=== PATIENT | female | born 1950 | race African-American/Black ===

== ENCOUNTER 2019-07-20 06:30 | Inpatient (IN) | payer MEDICARE, MEDICAID ==
[2019-07-20 07:19] VITALS: BP 99/60
[2019-07-20] MEDS ORDERED: Magnesium Hydroxide (MOM) 30 mL UDC PO PRN (07:41)
[2019-07-20] MEDS ORDERED: Maalox 30 mL Cup PO PRN (07:41)
[2019-07-20] MEDS: Multivitamin Tab PO SCH (08:57)
--- NOTE | 2019-07-20 20:38 | Consultation ---
DATE OF CONSULTATION: 07/20/2019 SUBJECTIVE: The patient was seen and evaluated. The patient's chart reviewed, Covering for Dr. Abreu. CHIEF COMPLAINT: "I am suicidal." REASON FOR HOSPITALIZATION: The patient stated that she was suicidal at her skilled nursing and placed on a 5150. HISTORY OF PRESENT ILLNESS: A 68-year-old female brought in here from [facility] on a 5150. She was brought in from a skilled nursing after she had called 911 as she was unresponsive, as she wanted to kill herself playing "." Today, on [id number] evaluation, the patient admits to depression, feeling suicidal, disengaged in the interview at times, needing a lot of redirection for simple conversation. PAST MEDICAL HISTORY: Limited, but noted to have a history of high blood pressure. PAST PSYCHIATRIC HISTORY: History of unspecified psych disorder. SIGNIFICANT FAMILY PSYCHIATRIC HISTORY: Limited due to the patient's uncooperative state. SOCIAL HISTORY: Currently lives in a skilled nursing. Denies any illicit drug use, alcohol. ALLERGIES TO MEDICATIONS: PENICILLIN. LEGAL HISTORY: Denied. ABUSE HISTORY: Denied. CURRENT HOME MEDICATIONS: Lisinopril, metformin, Theragen, Zyprexa 10 mg p.o. every day. PAST MEDICAL HISTORY: Includes also history of diabetes. MENTAL STATUS EXAMINATION: Disorganized, depressed, endorsing suicidal ideation, no active plan. Poor insight, poor judgment, poor impulse control, at times selectively mute, disorganized. ASSESSMENT AND PLAN: The patient is a 68-year-old female with a history of disorganized schizophrenia, currently on Zyprexa, unclear if the patient had been compliant with medication. We will continue with the current medication regimen. We will obtain more collateral baseline information: PRIMARY DIAGNOSIS: Unspecified psychosis, rule out schizoaffective disorder, rule out dementia with behavior disturbances. MEDICAL DIAGNOSES: 1. Hypertension. 2. Diabetes. WEAKNESSES: Poor coping skills. STRENGTHS: Good support system. LEGAL HISTORY: Unable to elicit the patient refusal. ESTIMATED LENGTH OF STAY: Between 5-10 days. ____ unable to elicit the patient refusal. PLAN: 1. Admit the patient. 2. Continue with the current medication. 3. Obtain more collateral baseline information. 4. Start the patient with inpatient individual and group therapy and developing coping skills. JOB# [id number]
[2019-07-20] MEDS: Benztropine 1 MG TAB PO SCH (21:06)
[2019-07-21 06:47] LABS: CHOLESTEROL 79 mg/dL (<200); HDL -HIGH DENSITY LIPOPROTEIN 39 mg/dL (23-92); TRIGLYCERIDES 85 mg/dL (<150)
[2019-07-21] MEDS: Multivitamin Tab PO SCH (08:30)
[2019-07-21] MEDS: Benztropine 1 MG TAB PO SCH (21:24)
--- NOTE | 2019-07-22 00:23 | History & Physical ---
ADMIT DATE: 07/20/2019 REASON FOR ADMISSION: Psychiatric disorder. HISTORY OF PRESENT ILLNESS: This is a 68-year-old female admitted to General Geropsych Unit for underlying psychiatric illnesses by ____ requested a medical H and P on this patient. The patient denies any medical concerns. PAST MEDICAL HISTORY: Diabetes, hypertension. PAST SURGICAL HISTORY: Noncontributory. FAMILY HISTORY: None. SOCIAL HISTORY: Denies any alcohol or tobacco. CURRENT MEDICATIONS: Reviewed. ALLERGIES: PENICILLIN. REVIEW OF SYSTEMS: Denies any fever, no chills, no nausea, no vomiting, no abdominal pain, no cough, no chest pain, ____. PHYSICAL EXAMINATION: VITAL SIGNS: Temperature 97, pulse 104, respirations 20, blood pressure 120/69, 100% on room air. HEENT: Unremarkable. HEART: S1, S2 normal. LUNGS: Clear to auscultation. ABDOMEN: Soft. NEUROLOGIC: Moves all extremities. The patient is awake, confused. ASSESSMENT: 1. Diabetes. 2. Hypertension. 3. Obesity. 4. ____. PLAN: Psych management per psychiatrist. Continue lisinopril, continue metformin. Monitor blood sugars and vitals. The patient is medically stable. Thank you ____ for allowing me to participate in the care of this patient. JOB# [id number]
--- NOTE | 2019-07-22 05:00 | Progress Notes ---
DATE: SUBJECTIVE: The patient was seen and evaluated. The patient's chart reviewed. Covering for Dr. Abreu. Overnight nursing staff reported the patient slept well, although very irritable upon approach and wanders throughout the unit. Today on [id number] evaluation, the patient continues to redirect "Liar, you're a liar," and when attempting to validate her emotions, she just becomes more irritable and anxious in regards to those terms. MENTAL STATUS EXAMINATION: Disorganized, suspicious, isolative, withdrawn. ASSESSMENT AND PLAN: History of schizophrenia, comorbid depression. We will continue with olanzapine to target the patient's suspicious and disorganized state. The patient in the near future may benefit from an antidepressant. We will continue to slowly titrate the patient's antipsychotics. Dictation ends here. JOB# [id number]
[2019-07-22] MEDS: Multivitamin Tab PO SCH (08:32)
[2019-07-22 09:11] LABS: A1C 6.7 % (4.8-5.6)
[2019-07-22] MEDS: Benztropine 1 MG TAB PO SCH (20:55)
--- NOTE | 2019-07-22 23:36 | Progress Notes ---
DATE: 07/22/2019 Case was discussed with staff of the patient, reviewed records. Covering for Dr. Abreu. This is a 68-year-old female who was admitted on 07/20/2019. She was suicidal at the custodial, placed on a hold, she came from [facility] on 5150. She called 911. She was unresponsive. She wanted to kill herself playing . Today, when she was seen by Dr. Allan, she admits to depression, feeling suicidal, disengaged in the interview at times, needing a lot of redirection. The patient unabble to give much information. The patient continues to be irritable. She slept well. She was wandering through the unit. Continues to need redirection calling the staff liars. She gets easily agitated, diagnosed with schizophrenia. Continues to have poor insight, unable to make safe plan for self-care. no side effects, no sedation, no nausea, no extrapyramidal symptoms. We gave her more time for the medication to work because of her age. We will continue to work with the patient in group therapy, milieu therapy, and adjust medication as needed. JOB# [id number] HALLIE
[2019-07-23] MEDS: Multivitamin Tab PO SCH (08:49)
--- NOTE | 2019-07-23 14:30 | Progress Notes ---
DATE: 07/23/2019 Case was discussed with staff of the patient, reviewed records. Covering for Dr. Abreu. The patient was having suicidal thoughts. She was playing in bed. She has been feeling depressed, suicidal, disengaged, unable to give much information. She continues to be irritable, wondering through the unit, needing redirection, calling the staff liars, easily agitated with a history of schizophrenia. Continues to have poor insight, unpredictable, impulsive, needing redirection. We will continue to work with the patient in group therapy, milieu therapy, and adjust the medication as needed. JOB# [id number]
[2019-07-23] MEDS: Benztropine 1 MG TAB PO SCH (21:04)
[2019-07-24] MEDS: Multivitamin Tab PO SCH (10:51)
--- NOTE | 2019-07-24 19:50 | Progress Notes ---
DATE: 07/24/2019 PSYCHIATRIC PROGRESS NOTE. SUBJECTIVE: Chart reviewed and the patient interviewed. Also discussed the patient's condition with the staff and reviewed records and labs. The patient is still guarded and withdrawn, although she started to get out of her room a little bit more. Also, slight improvement in her ADLs and the patient showered. Still she has minimum interaction and she is hardly talking, but at least she is getting out of her room and she is still trying to get to talk to others, although she does not talk much. The patient also still seems to be in a depressed mood. Otherwise, the patient is compliant with taking her medications with no side effects of Zyprexa 10 mg every day. ASSESSMENT: The patient is still anxious and is in a depressed mood. TREATMENT PLAN: Continue to monitor her behavior and her condition closely. Also, working on her depression and her ineffective coping and her isolative behavior. [facility]# [id number]
[2019-07-24] MEDS: Benztropine 1 MG TAB PO SCH (21:17)
[2019-07-25] MEDS: Multivitamin Tab PO SCH (08:32)
[2019-07-25] MEDS: Benztropine 1 MG TAB PO SCH (20:56)
--- NOTE | 2019-07-25 22:27 | Progress Notes ---
DATE: 07/25/2019 SUBJECTIVE: A 68-year-old female brought in from [facility], brought in from a longterm. Noted to be playing bingo, but it is really difficult to understand her. The patient apparently wanted to kill herself. She was depressed. The patient is a limited historian, difficult to really follow her thought processes, possible history of schizoaffective dementia per documentation. Dr. Abreu and Eliezer seeing the patient over the past few days, noting that she was disengaged, depressed, irritable, wandering in the unit, impulsive, unpredictable. Medications were noted including Zyprexa, Cogentin, will continue to monitor ongoing safety concerns at this time. PLAN: We will adjust and titrate medications. JOB# [id number]
[2019-07-26] MEDS: Multivitamin Tab PO SCH (09:49)
[2019-07-26] MEDS: Benztropine 1 MG TAB PO SCH (22:00)
--- NOTE | 2019-07-26 22:05 | General Progress Note ---
Subjective - Review of Systems Service Date: 07/26/19 Subjective: Patient doing fine no reported concern Objective - Results Recent Labs: Laboratory Last Values POC Glucose 96 MG/DL (70 - 105) 07/22/19 11:35 Triglycerides 85 mg/dL (<150) 07/21/19 05:50 Cholesterol 79 mg/dL (<200) 07/21/19 05:50 LDL Cholesterol Direct 21 mg/dL (75-193) L 07/21/19 05:50 HDL Cholesterol 39 mg/dL (23-92) 07/21/19 05:50 - Physical Exam Vitals and I&O: Vital Signs Temp 99.1 F 07/26/19 20:00 Pulse 99 07/26/19 20:00 Resp 18 07/26/19 20:00 BP 81/46 07/26/19 20:00 Pulse Ox 93 07/26/19 20:00 Intake & Output 07/26/19 07/26/19 07/27/19 06:59 18:59 06:59 Intake Total 120 900 Balance 120 900 Intake: Oral 120 900 Other: # Voids 3 3 # Bowel Movements 1 Stool Characteristics Formed Brown Active Medications: Current Medications Acetaminophen (Tylenol) 650 mg PO Q4HR PRN PRN Reason: Mild Pain / Temp above 100 Stop: 09/18/19 07:40 Al Hydrox/Mg Hydrox/Simethicone (Maalox) 30 ml PO Q4HR PRN PRN Reason: GI DISTRESS Stop: 09/18/19 07:40 Last Admin: 07/24/19 11:34 Dose: 30 ml Benztropine Mesylate (Cogentin) 1 mg PO HS CLAUDIA Stop: 09/18/19 20:59 Last Admin: 07/25/19 20:56 Dose: 1 mg Lisinopril (Zestril) 20 mg PO DAILY CLAUDIA Stop: 09/18/19 08:59 Last Admin: 07/26/19 09:50 Dose: 20 mg Lorazepam (Ativan) 0.5 mg PO Q4HR PRN; Protocol PRN Reason: Agitation Stop: 08/19/19 07:40 Last Admin: 07/24/19 10:51 Dose: 0.5 mg Magnesium Hydroxide (Milk Of Magnesia) 30 ml PO HS PRN PRN Reason: Constipation Metformin HCl (Glucophage) 850 mg PO BID CLAUDIA Stop: 09/18/19 08:59 Last Admin: 07/26/19 17:05 Dose: 850 mg Multivitamins/Vitamin C (Theragran) 1 tab PO DAILY CLAUDIA Stop: 09/18/19 08:59 Last Admin: 07/26/19 09:49 Dose: 1 tab Olanzapine (Zyprexa) 10 mg PO DAILY CLAUDIA; Protocol Stop: 09/18/19 08:59 Last Admin: 07/26/19 09:50 Dose: 10 mg Zolpidem Tartrate (Ambien) 5 mg PO HSMR1 PRN PRN Reason: Insomnia Stop: 09/18/19 07:40 Last Admin: 07/25/19 20:56 Dose: 5 mg Cardiovascular: Regular rate Lungs: Clear to auscultation Assessment/Plan - Assessment Assessment: DM II HTN Mental health disorder Obesity - Plan Plan: Continue current meds Monitor vitals Monitor blood sugar Plan of care dw nursing staff Psych follow up Nutritional Asmnt/Malnutr-PDOC - Dietary Evaluation Malnutrition Findings (Please click <Entered> for more info): Nutritional Asmnt/Malnutrition Start: 07/23/19 12: 39 Text: Status: Complete Freq: Protocol: Document 07/23/19 12:39 INDIO (Rec: 07/23/19 12:42 INDIO [email or web address]) Nutritional Asmnt/Malnutrition Patient General Information Nutritional Screening Moderate Risk Diagnosis Psychosis Pertinent Medical Hx/Surgical Hx HTN, DM, Psychiatric Disorder Subjective Information Pt is a 68-year-old female admitted on 07/20 c/o . Per RNEnedina, Pt eats very well, no issues. Pt typically uses dentures but did not arrive with any, RN states Pt eats with no issues. Pt is currently eating an estimated 60% x3 days per Meal/Nutrition Activity Record. HT: 53 WT: 210 LB (95.45 kg) ABW: 139 LB (63.07 kg) IBW: 115 LB (52.27 kg), IBW%: 183 BMI: 37.20 (Obese, Class II) GI: WNL, soft, large, round BM: Not Noted I/O: 1190/Not Noted Skin: WNL, intact Arnaldo: 22 Diet Order: CCHO 60gm Estimated Energy Needs: (Obese , ABW) 7204-7043 kcals (20-25 kcals/ kg) 63-76g Pro (1.0-1.2 g/kg) 8095-6602 ml (25-30 ml/kg) Pt is eating 60% of meals Per Meal/Nutrition Activity Record . Dietary is currently providing an estimated 1940 kcals and 115 gm Pro, per Pt PO intake this is providing an estimated 1164 kcals and 69gm Pro to meet 92% kcal and 100% Pro needs- adequate. Current Diet Order/ [facility] Pertinent Medications Maalox (PRN), MOM (PRN), Glucophage, Theragran, Pertinent Labs No Pertinent Labs Nutritional Hx/Data Height 1.6 m Height (Calculated Centimeters) 160.0 Current Weight (lbs) 95.254 kg Weight (Calculated Kilograms) 95.3 Weight (Calculated Grams) 45620.4 [place] Body Weight 115 LB (52.27 kg) % [place] Body Weight 183 Body Mass Index (BMI) 37.2 Weight Status Obese GI Symptoms GI Symptoms None Last BM Not Noted Skin Integrity/Comment: Skin: WNL, intact Arnaldo: 22 Current %PO Fair (50-74%) Estimated Nutritional Goals BEE in Kcals: Adj wt of IBW Calories/Kcals/Kg 20-25 Kcals Calculated 0795-8670 Protein: Adj wt of IBW Protein g/k.0-1.2 Protein Calculated 63-76 Fluid: ml 1872-3504 ml (25-30 ml/kg) Nutritional Problem No current Nutrition Prob Problem No nutrition diagnosis at this time. Etiology n/a Signs/Symptoms: n/a Malnutrition Related to Morbid Obesity Malnutrition related to morbid obesity No Intervention/Recommendation Comments Continue with [facility] 60gm diet as ordered. Expected Outcomes/Goals Expected Outcomes/Goals 1. PO intake to continue to meet 75% of nutritional needs. 2. Monitor PO intake, wt, nutrition related labs, and skin integrity. 3. F/U as low risk in 7 days, 07/30
--- NOTE | 2019-07-26 23:56 | Progress Notes ---
DATE: 07/26/2019 SUBJECTIVE: A 68-year-old female brought in from [facility] [place], coming in from a nursing home. Currently, the patient is sleeping, arousable, not the best historian, not really able to, for example, tell me why she is here. The patient was apparently unresponsive, told the 911 people she was playing . Apparently, she was suicidal and that she wanted to kill somebody else. The patient is a poor historian, highly impulsive, unpredictable, depressed, withdrawn, selectively mute, ongoing paranoia, is fearful with staff. ASSESSMENT: The patient is withdrawn, ongoing symptoms, concerns for poor impulse control. Medications were noted. PLAN: We will continue dosing of Zyprexa for now. [facility]# [id number]
[2019-07-27] MEDS: Multivitamin Tab PO SCH (08:18)
--- NOTE | 2019-07-27 19:10 | Progress Notes ---
DATE: 07/27/2019 SUBJECTIVE: The patient in the hospital. She slept fairly well. No noted agitation, disengaged on exam, highly withdrawn, not really saying anything, AO to name only, preoccupied, mumbling to self. Concerns for ongoing psychotic symptoms. Poor impulse control, not able to take care of her basic needs. Still preoccupied, unpredictable, seems to be developmentally delayed, concerns about poor impulse control. The patient is apparently living at home with her brother. We will continue to monitor. Medications were noted. We will continue to make appropriate medication adjustments. [facility]# [id number]
[2019-07-27] MEDS: Benztropine 1 MG TAB PO SCH (21:27)
[2019-07-28] MEDS: Multivitamin Tab PO SCH (08:28)
--- NOTE | 2019-07-28 20:15 | Progress Notes ---
DATE: 07/28/2019 SUBJECTIVE: The patient in the hospital, very poorly oriented, wandering, pacing, mostly keeps to herself, withdrawn, depressed, appearing easily irritated per staff. The patient is not really saying much to me this morning, actually walks away from me when I approached her, mumbling, slurring of her words. She did sleep pretty well last night. She seems generally calmer versus when she first got to the hospital. Medications were noted including doses of Zyprexa. Vitals were noted. We will continue to monitor. JOB# [id number]
[2019-07-28] MEDS: Benztropine 1 MG TAB PO SCH (21:13)
[2019-07-29] MEDS: Multivitamin Tab PO SCH (09:51)
--- NOTE | 2019-07-29 16:25 | Progress Notes ---
DATE: 07/29/2019 SUBJECTIVE: The patient in the hospital, mostly preoccupied, depressed, developmental disability. She is calmer now but she is pretty impulsive, unpredictable, difficult to predict her behaviors. I go to talk to her. She just avoids me. Does not say too much, selectively mute, ongoing concerns about her ability to stay safe although the staff noting that she has not had any recent behavioral disturbances, seems to be getting along fairly well with others as of late. Per Under Cutter, the patient is living with her brother and son and she is a [facility] client, seems to be approaching her baseline, currently on dosing of Zyprexa. PLAN: We will continue to monitor. Monitor for any behavioral disturbances. [facility]# [id number]
[2019-07-29] MEDS: Benztropine 1 MG TAB PO SCH (21:17)
--- NOTE | 2019-07-29 21:24 | General Progress Note ---
Subjective - Review of Systems Service Date: 07/29/19 Subjective: Patient doing fine no reported concern Objective - Results Recent Labs: Laboratory Last Values POC Glucose 96 MG/DL (70 - 105) 07/22/19 11:35 Triglycerides 85 mg/dL (<150) 07/21/19 05:50 Cholesterol 79 mg/dL (<200) 07/21/19 05:50 LDL Cholesterol Direct 21 mg/dL (75-193) L 07/21/19 05:50 HDL Cholesterol 39 mg/dL (23-92) 07/21/19 05:50 - Physical Exam Vitals and I&O: Vital Signs Temp 98.3 F 07/29/19 20:23 Pulse 93 07/29/19 20:23 Resp 20 07/29/19 20:23 BP 120/68 07/29/19 20:23 Pulse Ox 97 07/29/19 20:23 Intake & Output 07/29/19 07/29/19 07/30/19 06:59 18:59 06:59 Intake Total 480 900 180 Output Total 1 Balance 479 900 180 Intake: Oral 480 900 180 Output: Urine/Stool Mix 1 Other: # Voids 1 3 2 # Bowel Movements 1 0 Stool Characteristics Formed Brown Active Medications: Current Medications Acetaminophen (Tylenol) 650 mg PO Q4HR PRN PRN Reason: Mild Pain / Temp above 100 Stop: 09/18/19 07:40 Al Hydrox/Mg Hydrox/Simethicone (Maalox) 30 ml PO Q4HR PRN PRN Reason: GI DISTRESS Stop: 09/18/19 07:40 Last Admin: 07/24/19 11:34 Dose: 30 ml Benztropine Mesylate (Cogentin) 1 mg PO HS CLAUDIA Stop: 09/18/19 20:59 Last Admin: 07/29/19 21:17 Dose: 1 mg Lisinopril (Zestril) 20 mg PO DAILY CLAUDIA Stop: 09/18/19 08:59 Last Admin: 07/29/19 09:50 Dose: Not Given Lorazepam (Ativan) 0.5 mg PO Q4HR PRN; Protocol PRN Reason: Agitation Stop: 08/19/19 07:40 Last Admin: 07/27/19 08:19 Dose: 0.5 mg Magnesium Hydroxide (Milk Of Magnesia) 30 ml PO HS PRN PRN Reason: Constipation Metformin HCl (Glucophage) 850 mg PO BID CLAUDIA Stop: 09/18/19 08:59 Last Admin: 07/29/19 17:23 Dose: 850 mg Multivitamins/Vitamin C (Theragran) 1 tab PO DAILY CLAUDIA Stop: 09/18/19 08:59 Last Admin: 07/29/19 09:51 Dose: 1 tab Olanzapine (Zyprexa) 10 mg PO DAILY CLAUDIA; Protocol Stop: 09/18/19 08:59 Last Admin: 07/29/19 09:51 Dose: 10 mg Zolpidem Tartrate (Ambien) 5 mg PO HSMR1 PRN PRN Reason: Insomnia Stop: 09/18/19 07:40 Last Admin: 07/29/19 21:17 Dose: 5 mg Cardiovascular: Regular rate Lungs: Clear to auscultation Assessment/Plan - Assessment Assessment: DM II HTN Mental health disorder Obesity - Plan Plan: Continue current meds Monitor vitals Monitor blood sugar Plan of care dw nursing staff Psych follow up Nutritional Asmnt/Malnutr-PDOC - Dietary Evaluation Malnutrition Findings (Please click <Entered> for more info): Nutritional Asmnt/Malnutrition Start: 07/23/19 12: 39 Text: Status: Complete Freq: Protocol: Document 07/23/19 12:39 INDIO (Rec: 07/23/19 12:42 INDIO [email or web address]) Nutritional Asmnt/Malnutrition Patient General Information Nutritional Screening Moderate Risk Diagnosis Psychosis Pertinent Medical Hx/Surgical Hx HTN, DM, Psychiatric Disorder Subjective Information Pt is a 68-year-old female admitted on 07/20 c/o . Per RNEnedina, Pt eats very well, no issues. Pt typically uses dentures but did not arrive with any, RN states Pt eats with no issues. Pt is currently eating an estimated 60% x3 days per Meal/Nutrition Activity Record. HT: 53 WT: 210 LB (95.45 kg) ABW: 139 LB (63.07 kg) IBW: 115 LB (52.27 kg), IBW%: 183 BMI: 37.20 (Obese, Class II) GI: WNL, soft, large, round BM: Not Noted I/O: 1190/Not Noted Skin: WNL, intact Arnaldo: 22 Diet Order: [facility] 60gm Estimated Energy Needs: (Obese , ABW) 4787-5262 kcals (20-25 kcals/ kg) 63-76g Pro (1.0-1.2 g/kg) 5207-6937 ml (25-30 ml/kg) Pt is eating 60% of meals Per Meal/Nutrition Activity Record . Dietary is currently providing an estimated 1940 kcals and 115 gm Pro, per Pt PO intake this is providing an estimated 1164 kcals and 69gm Pro to meet 92% kcal and 100% Pro needs- adequate. Current Diet Order/ Nutrition Support [facility] 60gm Pertinent Medications Maalox (PRN), MOM (PRN), Glucophage, Theragran, Pertinent Labs No Pertinent Labs Nutritional Hx/Data Height 1.6 m Height (Calculated Centimeters) 160.0 Current Weight (lbs) 95.254 kg Weight (Calculated Kilograms) 95.3 Weight (Calculated Grams) 36394.4 [place] Body Weight 115 LB (52.27 kg) % [place] Body Weight 183 Body Mass Index (BMI) 37.2 Weight Status Obese GI Symptoms GI Symptoms None Last BM Not Noted Skin Integrity/Comment: Skin: WNL, intact Arnaldo: 22 Current %PO Fair (50-74%) Estimated Nutritional Goals BEE in Kcals: Adj wt of IBW Calories/Kcals/Kg 20-25 Kcals Calculated 6772-9162 Protein: Adj wt of IBW Protein g/k.0-1.2 Protein Calculated 63-76 Fluid: ml 1248-2936 ml (25-30 ml/kg) Nutritional Problem No current Nutrition Prob Problem No nutrition diagnosis at this time. Etiology n/a Signs/Symptoms: n/a Malnutrition Related to Morbid Obesity Malnutrition related to morbid obesity No Intervention/Recommendation Comments Continue with [facility] 60gm diet as ordered. Expected Outcomes/Goals Expected Outcomes/Goals 1. PO intake to continue to meet 75% of nutritional needs. 2. Monitor PO intake, wt, nutrition related labs, and skin integrity. 3. F/U as low risk in 7 days, 07/30
[2019-07-30] MEDS: Multivitamin Tab PO SCH (08:46)
[2019-07-30] MEDS: Benztropine 1 MG TAB PO SCH (20:57)
--- NOTE | 2019-07-30 22:16 | Progress Notes ---
DATE: 07/30/2019 SUBJECTIVE: The patient is in the hospital, mostly preoccupied, depressed, concerns. The patient with history of developmental disabilities. She remains pretty impulsive, unpredictable, and difficult to predict her behaviors. The patient seems to be getting along fairly well with others as of late. Generally calmer, some pacing, wandering behaviors. The patient got about 9-1/2 hours of sleep, resting comfortably in bed, preoccupied, oriented to self and place only. Noted to be sad, depressed, still withdrawn appearing, ongoing concerns about impulse control. Still childlike. We will continue to monitor ongoing concerns about poor impulse control. The patient is apparently living with family. PLAN: We will continue to monitor, likely approaching her baseline. [facility]# [id number]
[2019-07-31] MEDS: Multivitamin Tab PO SCH (08:50)
[2019-07-31] MEDS: Benztropine 1 MG TAB PO SCH (20:45)
--- NOTE | 2019-07-31 23:34 | Progress Notes ---
DATE: 07/31/2019 SUBJECTIVE: The patient is in the hospital, preoccupied, still depressed, unpredictable at times, history of developmental disability. The patient seems to be generally calmer, more redirectable, no agitation. She remained somewhat unpredictable as noted, but her behaviors over the past couple of days has been calm, mostly withdrawn, keeps to self, concerns that she may act out upon her impulses as she has done so in the past. Medications were noted. She seems to be tolerant of Zyprexa. No side effects. PLAN: We will continue to monitor. JOB# [id number]
[2019-08-01] MEDS: Multivitamin Tab PO SCH (08:49)
--- NOTE | 2019-08-01 21:11 | Progress Notes ---
DATE: 08/01/2019 SUBJECTIVE: The patient in the hospital, slept for about 7 hours. No behavioral outbursts. The patient is calm, quiet, cooperative, preoccupied with own thoughts, forgetful at times, still somewhat unpredictable. She seems to be calmer. No noted agitation at this time, getting along fairly well with staff and peers, currently on dosing of Zyprexa, seems to be tolerant of dosage. No SI, no HI. No overt psychotic symptoms, seems to be approaching her baseline. Staff noting she is a lot more redirectable. PLAN: We will monitor for further 24 hours, confirm placement. JOB# [id number]
[2019-08-01] MEDS: Benztropine 1 MG TAB PO SCH (21:19)
[2019-08-02] MEDS: Multivitamin Tab PO SCH (08:39)
[2019-08-02] MEDS: Benztropine 1 MG TAB PO SCH (22:00)
--- NOTE | 2019-08-03 01:59 | Progress Notes ---
DATE: 08/02/2019 SUBJECTIVE: The patient is currently in the hospital, seems to be generally calmer, more cooperative, no SI, no HI, no intent, no plan. Staff noting improvement in regards to her mood state. No agitation, unable to make simple needs. No overt psychotic symptoms. Tolerant of medications. PLAN: We will discharge today on inpatient criteria. JOB# [id number]
[2019-08-03] MEDS: Multivitamin Tab PO SCH (08:38)
--- NOTE | 2019-08-03 17:50 | Progress Notes ---
DATE: 08/03/[address] Abreu. Case was discussed with staff of the patient, reviewed records. The patient is a well-known case to me as I have admitted her covering for Dr. Abreu. The patient is more cooperative, calmer. No agitation; however, unable to make simple decisions. Apparently, she is supposed to be discharging; however, I am not sure why she is still here. The staff reported that nobody was able to tell me why. No side effects with the medication, no sedation, no nausea. We will continue outpatient group therapy, milieu therapy, and adjust medication as needed. JOB# [id number]
[2019-08-03] MEDS: Benztropine 1 MG TAB PO SCH (21:09)
[2019-08-04] MEDS: Multivitamin Tab PO SCH (08:53)
--- NOTE | 2019-08-04 13:21 | Discharge Summary ---
DATE OF DISCHARGE: 08/04/2019 IDENTIFYING INFORMATION: The patient is a 68-year-old female. CHIEF COMPLAINT: "I am suicidal." HISTORY OF PRESENT ILLNESS: The patient was placed on a hold on the halfway because of danger to self. She was brought from [facility] on a hold. She was brought from a halfway after she had called 911. She was unresponsive. She wanted to kill herself playing . Today, when she was seeing [id number], she patient admits depression, feeling suicidal, disengaged and needing a lot of redirection. MEDICAL HISTORY: Hypertension, history of unspecified psychotic disorder. ALLERGIES: ALLERGIC TO PENICILLIN. She will continue lisinopril, metformin, and Zyprexa 10 mg daily. SOCIAL HISTORY: The patient lives in a halfway. Denies any abuse. COURSE IN THE HOSPITAL: The patient was continued with Zyprexa. The patient also will continue with the rest of her medications described before. Cogentin was added 1 mg at bedtime. The patient progressively got better. She was no longer acting out. Apparently, her family came and visited her. They do plan to take her. Family Dr. Phan, already put the order for her to be discharged today as she is doing well. She is calmer, more cooperative. No suicidal ideation, no homicidal ideation. No longer meeting criteria for further inpatient treatment. So, the patient will follow up with the psychiatrist, primary care physician and a therapist. The patient will be given 2-week supply of her medication with one refill. FINAL DIAGNOSES: Unspecified schizoaffective disorder, rule out dementia. MEDICAL DIAGNOSES: Hypertension, diabetes. The patient will follow up with psychiatrist and primary care physician and therapist. EXPECTED OUTCOME: Stable if the patient complies with the above. JOB# [id number]
== END 2019-08-04 15:20 | disposition home or self-care (01) | DRG 885 ==
LOC: GERO 06:30
PROVIDERS: ADMIT Psychiatry & Neurology Psychiatry; ATTEND Psychiatry & Neurology Psychiatry
DX: F25.9 Schizoaffective disorder, unspecified (principal); F03.91 Unspecified dementia, unspecified severity, with behavioral disturbance; F29 Unspecified psychosis not due to a substance or known physiological condition; I10 Essential (primary) hypertension; E11.9 Type 2 diabetes mellitus without complications; E66.9 Obesity, unspecified; F41.9 Anxiety disorder, unspecified; Z88.0 Allergy status to penicillin; Z79.84 Long term (current) use of oral hypoglycemic drugs; Z68.37 Body mass index [BMI] 37.0-37.9, adult
CPT/HCPCS: 36415-UA; 80061-TC; 82948-90; 83036-90; 90899; G0410; Z7610

== ENCOUNTER 2019-11-07 14:35 | Inpatient (IN) | payer MEDICARE, MEDICAID ==
[2019-11-07 14:57] VITALS: BP 135/36
[2019-11-07] MEDS ORDERED: Maalox 30 mL Cup PO PRN ×2 (15:32→17:50)
[2019-11-07] MEDS ORDERED: Magnesium Hydroxide (MOM) 30 mL UDC PO PRN (15:32)
[2019-11-07] MEDS ORDERED: GLUCAGON HCl 1 MG KIT IM PRN (19:14)
[2019-11-07] MEDS: INSULIN LISPRO SLIDING SCALE 100 UNITS/ML UNIT SUBQ SCH (20:55)
[2019-11-07] MEDS: Benztropine 1 MG TAB PO SCH (21:04)
[2019-11-08] MEDS: INSULIN LISPRO SLIDING SCALE 100 UNITS/ML UNIT SUBQ SCH ×4 (06:36→20:49)
[2019-11-08] MEDS: Aspirin 81mg Chewable Tab PO SCH (08:12)
[2019-11-08] MEDS: Multivitamin Tab PO SCH (08:12)
[2019-11-08] MEDS ORDERED: Multivitamin Tab PO SCH (09:00)
[2019-11-08] MEDS: Benztropine 1 MG TAB PO SCH (20:48)
[2019-11-09] MEDS: INSULIN LISPRO SLIDING SCALE 100 UNITS/ML UNIT SUBQ SCH ×4 (06:50→21:02)
[2019-11-09] MEDS: Aspirin 81mg Chewable Tab PO SCH (10:43)
[2019-11-09] MEDS: Multivitamin Tab PO SCH (10:45)
[2019-11-09] MEDS: Benztropine 1 MG TAB PO SCH (21:02)
--- NOTE | 2019-11-09 22:33 | Progress Notes ---
DATE: 11/09/2019 SUBJECTIVE: The patient in the hospital, slept about 10 hours. No behavioral outburst, calm and quiet overnight, apparently brought in, diagnosis was schizophrenia. Apparently was agitated, going to neighbors houses, refusing to eat, refusing medications, acting strange, bizarre. The patient refusing to speak with me this morning, sleeping, arousable, but does not want to engage, mostly depressed, withdrawn, selectively mute and isolative, ongoing symptoms, safety concerns, concerns for ability to really stay safe at a lower level of care. Continue dosing of Zyprexa. JOB# [id number]
[2019-11-10] MEDS: INSULIN LISPRO SLIDING SCALE 100 UNITS/ML UNIT SUBQ SCH ×4 (06:36→20:51)
[2019-11-10] MEDS: Multivitamin Tab PO SCH (08:21)
[2019-11-10] MEDS: Aspirin 81mg Chewable Tab PO SCH (08:21)
[2019-11-10] MEDS: Benztropine 1 MG TAB PO SCH (20:51)
[2019-11-11] MEDS: INSULIN LISPRO SLIDING SCALE 100 UNITS/ML UNIT SUBQ SCH ×4 (06:32→20:48)
--- NOTE | 2019-11-11 08:04 | Psychiatric Evaluation ---
DATE OF SERVICE: 11/10/2019 PATIENT'S AGE: 68 SEX: Male. PHYSICIAN: Dr. Abreu. CHIEF COMPLAINT: Agitation and irritability. HISTORY OF PRESENT ILLNESS: The patient is a 68-year-old male with history of schizophrenia. The patient was admitted to the hospital because the patient was wandering into other people's houses for him at home and she was refusing to take her medications or to get any help. She also was easily irritable and agitated. The patient is still confused and is still in irritable mood. The patient also has no explanation for why she was going to other people's houses. She also was restless. PAST PSYCHIATRIC HISTORY: The patient has history of schizophrenia according to the chart. PAST MEDICAL HISTORY: The patient has history of hypertension as well as diabetes mellitus. SOCIAL HISTORY: The patient lives at home. No known alcohol or drug use. ALLERGIES: PENICILLIN. MENTAL STATUS EXAMINATION: The patient appears older than her stated age. Anxious. Confused. Irritable mood. Easily agitated. Thought processes are circumstantial with flight of ideas. The patient denies any hallucinations or delusions. The patient denied suicidal or homicidal ideation. The patient is alert and oriented to the place, person, and situation. Intact immediate, recent and remote memories. Poor insight and poor judgment. ASSESSMENT: PRIMARY DIAGNOSIS: Schizophrenic disorder, unspecified. MEDICAL DIAGNOSES: 1. Diabetes mellitus. 2. Hypertension. TREATMENT PLAN: Continue to monitor her behavior and her condition closely. Also, we will continue Zyprexa and we will adjust the dose. Hopefully, the patient will be compliant with taking her medications and will work on her compliance with medications. Also, will work on behavior and followup. ESTIMATED LENGTH OF STAY: 5-7 days. PATIENT'S STRENGTHS AND WEAKNESSES: The patient's strength is not clear at this time. Weaknesses are her poor judgment, but noncompliant with taking her medications. AFTER DISCHARGE PLAN: Outpatient treatment and followup will continue as an outpatient. CRITERIA FOR DISCHARGE: The patient will not be psychotic or agitated and will be compliant with taking her medications and followup. JOB# [id number]
--- NOTE | 2019-11-11 08:04 | History & Physical ---
ADMIT DATE: 11/08/2019 REASON FOR ADMISSION: Psychiatric disorder. HISTORY OF PRESENT ILLNESS: This is a 68-year-old female with underlying history of diabetes, hypertension, mental disorders who was admitted to Geropsych Unit for psychiatric illness by Dr. Abreu. Dr. Abreu requested medical H and P on this patient. The patient denies any chest pain or trouble breathing. No fever, no chills, no nausea, no abdominal complaints. PAST MEDICAL HISTORY: Diabetes, hypertension. PAST SURGICAL HISTORY: No significant past surgical history. FAMILY HISTORY: No significant family history. SOCIAL HISTORY: Lives in a care home. No reported alcohol, tobacco, or drug use. CURRENT MEDICATIONS: Per medication reconciliation. ALLERGIES: No known allergies. REVIEW OF SYSTEMS: No reported fever, no chills, no cough, no congestion, no dysuria, no hematuria, no headache, no nausea, vomiting, or abdominal pain ____. PHYSICAL EXAMINATION: VITAL SIGNS: Temperature 98.0, pulse 75, respirations 20, blood pressure 119/61. Pain 0/10. HEENT: Unremarkable. HEART: S1, S2 normal. LUNGS: Clear to auscultation. ABDOMEN: Soft, nontender. NEUROLOGIC: ____. AVAILABLE LABORATORY DATA: Reviewed. ASSESSMENT: 1. Hypertension. 2. Diabetes. 3. Insomnia. 4. Mental disorder. PLAN: The patient will continue on a diabetic and blood pressure medication. Blood sugar monitor, Accu-Cheks, sliding scale coverage will be given. Psych management per psychiatrist. The patient ____ Ambien is for insomnia. The patient's condition and plan of care discussed with the nursing staff. The patient is medically stable to participate in activities of Geropsych Unit. Thank you, Dr. Abreu for allowing me to participate in the care of this patient. JOB# [id number]
--- NOTE | 2019-11-11 08:04 | Progress Notes ---
DATE: 11/10/2019 SUBJECTIVE: The patient in the hospital, noted to be generally calm, seems to be more cooperative, taking medications, selective however, unpredictable, uncooperative per staff, rambling, mumbling, talking to self, very impulsive, unpredictable, ongoing safety concerns, noted to be sad, withdrawn, poor orientation and medications were noted. PLAN: We will continue to monitor. Continue dosing of Zyprexa. [facility]# [id number]
[2019-11-11] MEDS: Aspirin 81mg Chewable Tab PO SCH (08:26)
[2019-11-11] MEDS: Multivitamin Tab PO SCH (08:26)
--- NOTE | 2019-11-11 10:49 | Progress Notes ---
DATE: 11/11/2019 SUBJECTIVE: Chart was reviewed and the patient interviewed. Also discussed the patient's condition with the staff and reviewed records and labs. The patient is still confused and forgetful. The patient also is selectively mute and when I tried to interview the patient, she kept staring at me without answering most of my questions. At other time, she was mumbling and talking to herself with difficulty to understand what she is talking about. The patient also seems to be in a depressed mood with sad affect. Otherwise, the patient is compliant with taking her medications with no side effects of medications. ASSESSMENT: The patient is still confused, but less agitated. TREATMENT PLAN: Continue Zyprexa 10 mg at bedtime. Also, continue monitoring her behavior and adjusting psychotropic medications and continue to follow up closely. [facility]# [id number]
[2019-11-11] MEDS: Benztropine 1 MG TAB PO SCH (20:47)
[2019-11-12] MEDS: INSULIN LISPRO SLIDING SCALE 100 UNITS/ML UNIT SUBQ SCH ×4 (06:42→21:42)
[2019-11-12] MEDS: Aspirin 81mg Chewable Tab PO SCH (09:56)
[2019-11-12] MEDS: Multivitamin Tab PO SCH (10:05)
--- NOTE | 2019-11-12 11:24 | Progress Notes ---
DATE: Chart was reviewed and the patient interviewed. Also discussed the patient's condition with the staff and reviewed records and labs. The patient continued to be confused and is still in a depressed mood. The patient also is still forgetful and is still unable to answer questions coherently. Also, during interview, the patient mumbles and have difficulty formulating any coherent conversation. She also is still suspicious, but seems to be less suspicious and less paranoid. Also, personal hygiene seems to be better. During interview, the patient also seems to be slightly depressed. ASSESSMENT: The patient is still confused and paranoid. TREATMENT PLAN: Continue Zyprexa 10 mg at bedtime and Cogentin 1 mg at bedtime. Also, continue to work on behavior modification and follow up closely. [facility]# [id number]
[2019-11-12] MEDS: Benztropine 1 MG TAB PO SCH (21:41)
[2019-11-13] MEDS: INSULIN LISPRO SLIDING SCALE 100 UNITS/ML UNIT SUBQ SCH ×4 (06:36→20:07)
[2019-11-13] MEDS: Multivitamin Tab PO SCH (08:08)
[2019-11-13] MEDS: Aspirin 81mg Chewable Tab PO SCH (08:08)
[2019-11-13] MEDS: Benztropine 1 MG TAB PO SCH (21:09)
[2019-11-14] MEDS: INSULIN LISPRO SLIDING SCALE 100 UNITS/ML UNIT SUBQ SCH ×4 (06:55→20:08)
[2019-11-14] MEDS: Multivitamin Tab PO SCH (08:15)
[2019-11-14] MEDS: Aspirin 81mg Chewable Tab PO SCH (08:15)
[2019-11-14] MEDS: Escitalopram Oxalate 5 mg Tab PO SCH (08:38)
[2019-11-14] MEDS: Benztropine 1 MG TAB PO SCH (20:49)
[2019-11-15] MEDS: INSULIN LISPRO SLIDING SCALE 100 UNITS/ML UNIT SUBQ SCH ×2 (06:40→11:58)
--- NOTE | 2019-11-15 08:06 | Progress Notes ---
DATE: 11/13/2019 DATE: 11/13/2019. Chart reviewed and the patient interviewed. Also discussed the patient's condition with the staff and reviewed records and labs. The patient is still forgetful and confused. The patient also is still suspicious and paranoid. The patient also is still acting bizarre and she mumbles and talking to herself. She also is still suspicious and is still paranoid. She also easily agitated and easily irritable; otherwise, the patient is compliant with taking her medications with no side effects. ASSESSMENT: The patient is still agitated and in irritable mood. TREATMENT PLAN: We will monitor the patient's behavior and condition closely. Also, we will continue Zyprexa and Cogentin and work on her agitation and irritability. JOB# [id number]
--- NOTE | 2019-11-15 08:06 | Progress Notes ---
DATE: 11/14/2019 SUBJECTIVE: Chart was reviewed and the patient interviewed. Also discussed the patient's condition with the staff and reviewed records and labs. The patient is still selectively mute and is still easily irritable and easily agitated. The patient also seems to be preoccupied. On the other hand, the patient seems to be more depressed today. ASSESSMENT: The patient seems to be more depressed. TREATMENT PLAN: We will add Lexapro 5 mg every day and continue to follow up closely. JOB# [id number]
[2019-11-15] MEDS: Escitalopram Oxalate 5 mg Tab PO SCH (08:15)
[2019-11-15] MEDS: Multivitamin Tab PO SCH (08:15)
[2019-11-15] MEDS: Aspirin 81mg Chewable Tab PO SCH (08:15)
[2019-11-15] MEDS: Benztropine 1 MG TAB PO SCH (20:54)
--- NOTE | 2019-11-15 22:12 | Progress Notes ---
DATE: 11/15/2019 SUBJECTIVE: Chart was reviewed and the patient interviewed. Also discussed the patient's condition with the staff and reviewed records and labs. The patient is still restless and is still in irritable mood. The patient also is still confused and still seems to be depressed. The patient also is interacting minimally with peers and with others. The patient also still at times selectively mute and resisting care. Also, during interview, the patient seems to be preoccupied. Otherwise, the patient is compliant with taking her medications with no side effects of medications. ASSESSMENT: The patient is still confused and agitated. TREATMENT PLAN: Continue to monitor behavior and condition closely. Also, continue adjusting psychotropic medications and work on behavioral modification and also on ineffective coping. Lexapro was added yesterday in a dose of 5 mg every day with no side effects. JOB# [id number]
[2019-11-16] MEDS: INSULIN LISPRO SLIDING SCALE 100 UNITS/ML UNIT SUBQ SCH (06:54)
[2019-11-16] MEDS: Aspirin 81mg Chewable Tab PO SCH (08:50)
[2019-11-16] MEDS: Multivitamin Tab PO SCH (08:50)
[2019-11-16] MEDS ORDERED: Escitalopram Oxalate 5 mg Tab PO SCH (09:00)
--- NOTE | 2019-11-16 20:39 | Progress Notes ---
DATE: SUBJECTIVE: Chart reviewed and patient interviewed. Also discussed patient's condition with the staff and reviewed records and labs. The patient seems to be slightly calmer. The patient is still withdrawn and interacting minimally with others. The patient is also selectively mute and she seems to be actively responding to stimuli and talking to herself. She also is still in a depressed mood and she still had sad affect. On the other hand, since patient started on Lexapro 5 mg every day, she seems to be slightly more visible on the unit and getting out of her room slightly more than before. ASSESSMENT: The patient is still psychotic, but depressed. TREATMENT PLAN: Continue to monitor her behavior and her condition closely. Also, we will increase Lexapro to 10 mg every day and we will continue Zyprexa 10 mg at bedtime and continue to follow up. JOB# [id number]
[2019-11-16] MEDS: Benztropine 1 MG TAB PO SCH (21:14)
[2019-11-17] MEDS: INSULIN LISPRO SLIDING SCALE 100 UNITS/ML UNIT SUBQ SCH (06:41)
[2019-11-17] MEDS: Aspirin 81mg Chewable Tab PO SCH (08:55)
[2019-11-17] MEDS: Multivitamin Tab PO SCH (08:55)
[2019-11-17] MEDS: Benztropine 1 MG TAB PO SCH (21:11)
[2019-11-18] MEDS: INSULIN LISPRO SLIDING SCALE 100 UNITS/ML UNIT SUBQ SCH (06:56)
[2019-11-18] MEDS: Multivitamin Tab PO SCH (08:18)
[2019-11-18] MEDS: Aspirin 81mg Chewable Tab PO SCH (08:18)
[2019-11-18] MEDS: Benztropine 1 MG TAB PO SCH (20:48)
[2019-11-19] MEDS: INSULIN LISPRO SLIDING SCALE 100 UNITS/ML UNIT SUBQ SCH (06:48)
[2019-11-19] MEDS: Aspirin 81mg Chewable Tab PO SCH (09:02)
[2019-11-19] MEDS: Multivitamin Tab PO SCH (09:03)
== END 2019-11-19 14:50 | DRG 885 ==
LOC: GERO 14:35
PROVIDERS: ADMIT Psychiatry & Neurology Psychiatry; ATTEND Psychiatry & Neurology Psychiatry
DX: F25.9 Schizoaffective disorder, unspecified (principal); I10 Essential (primary) hypertension; E11.9 Type 2 diabetes mellitus without complications; G47.00 Insomnia, unspecified
CPT/HCPCS: 82948-90; 83036-90; G0410; Z7610

== ENCOUNTER 2020-03-09 08:21 | Inpatient (IN) | payer MEDICARE, MEDICAID ==
[2020-03-09] MEDS ORDERED: Magnesium Hydroxide (MOM) 30 mL UDC PO PRN (11:14)
[2020-03-09] MEDS ORDERED: Acetaminophen 500 MG TAB PO PRN (11:14)
[2020-03-09] MEDS ORDERED: Maalox 30 mL Cup PO PRN (11:14)
[2020-03-09 12:24] VITALS: BP 130/73
--- NOTE | 2020-03-09 13:16 | Consultation ---
DATE OF CONSULTATION: 03/09/2020 HISTORY OF PRESENT ILLNESS: We have an elderly patient with diabetes, hypertension, renal failure and bipolar disorder, who is being transferred here to geropsychiatric for acute agitation. The patient is flailing her arms and saying words that nobody can comprehend. According to [facility] doctor, it appears that the patient was having a manic episode with repetitive arm and hand motion. PAST MEDICAL HISTORY: 1. Bipolar 2. Schizophrenia. 3. Diabetes. 4. Hypertension. 5. Renal failure. PAST SURGICAL HISTORY: Unobtainable. MEDICATIONS: Reviewed. ALLERGIES: None. SOCIAL HISTORY: Unobtainable. REVIEW OF SYSTEMS: Difficult to obtain. PHYSICAL EXAMINATION: VITAL SIGNS: Temperature is 98.0, pulse 70, respirations 18, blood pressure 130/73. HEENT: Normocephalic, atraumatic head exam. NECK: Supple. CARDIOVASCULAR: Regular rate and rhythm. LUNGS: Clear. ABDOMEN: Soft, nontender. EXTREMITIES: No edema, cyanosis or clubbing. ASSESSMENT AND PLAN: 1. Renal failure. 2. Diabetes. 3. Hypertension. 4. Bipolar. 5. Schizophrenia. The patient will have renal function labs performed tomorrow a.m.. The patient will need to have close monitoring of his kidney function. The patient will need to get Accu-Cheks and blood sugar scan done every 6 hours. The patient will need to get a lipid profile. I have reviewed the entire medical records and spoken to family member. Family member says that patient was at home prior to visiting [facility] and their PCP is Dr. Bravo JOB# [id number] MTDD
--- NOTE | 2020-03-09 19:17 | Psychiatric Evaluation ---
DATE OF SERVICE: PSYCHIATRIC INITIAL EVALUATION AND MENTAL STATUS EXAM AGE: 69. SEX: Female. PHYSICIAN: Dr. Abreu. CHIEF COMPLAINT: 5150 hold for grave disability. HISTORY OF PRESENT ILLNESS: The patient was admitted to the hospital on a 5150 hold for grave disability. The patient was presented in [facility] Emergency Room for psychiatric evaluation. The family who brought the patient to the Emergency Room said that the patient was making nonsense and talking to nonvisible people. The patient also was not able to comprehend what the family was trying to tell her. She also was not able to make any sense. She also was having episodes of what seems to be a manic behavior like waving her arms strongly in the air. She also was confused and the patient while in the Emergency Room was not able to state her name and who she lives with. Also, at times, was very tearful and she was rocking back and forth in bed. The patient during my talk to her was obviously preoccupied and confused and she was not able to answer any of my questions coherently and kept covering her face with a blanket and refused to take off the blanket to talk to me. PAST PSYCHIATRIC HISTORY: The patient seems to have history of bipolar disorder versus schizoaffective disorder. The patient has been taking Zyprexa. PAST MEDICAL HISTORY: The patient has a history of hypertension and also non-insulin dependent diabetes mellitus. Otherwise, no other major medical issues. SOCIAL HISTORY: The patient lives with her family. No known alcohol or drug use. ALLERGIES: PENICILLIN. MENTAL STATUS EXAMINATION: The patient appears older than her stated age. Anxious. Sad affect. Irritable mood. Selectively mute and did not want to answer any of my questions. The patient denied any hallucinations or delusions. She denies any thoughts of suicide or homicide. The patient is alert, but unable to assess her orientation or memory at this time and seems to be actively responding to stimuli and confused. Unable to assess her memory or orientation or intelligence at this time because the patient is not answering questions. Poor insight and poor judgment. ASSESSMENT: PRIMARY DIAGNOSIS: Schizoaffective disorder, manic episode, severe, with psychotic features. MEDICAL DIAGNOSES: 1. Hypertension. 2. Diabetes mellitus. TREATMENT PLAN: We will monitor the patient's behavior and condition closely. We will start individual as well as milieu psychotherapy. We will monitor psychotropic medications. ESTIMATED LENGTH OF STAY: 5-7 days. DISCHARGE PLAN: The patient might need placement and outpatient treatment and followup will continue with Dr. Abreu. JOB# [id number]
[2020-03-09] MEDS ORDERED: Haloperidol Lactate 5 mg/mL 1mL Vial IM ONE (21:10)
--- NOTE | 2020-03-10 07:07 | Progress Notes ---
DATE: 03/10/2020 SUBJECTIVE: Chart reviewed and the patient interviewed. Also discussed the patient's condition with the staff and reviewed records and labs. The patient is selectively mute and she is still severely agitated and had episodes of anger. Yesterday, the patient was throwing stuff on the floor and swinging her arms and the patient was given Haldol, Ativan and Benadryl emergency injection to calm her down. The patient currently is calm, but she still has episodes of swinging her arms in air in a way as if she is trying to hit somebody even if nobody next to her. Also, she is still hyperactive and seems to be having some manic episodes. Otherwise, the patient is compliant with taking medications. The patient's gait was steady and vital signs are stable and no new labs available for review. MENTAL STATUS EXAMINATION: Disheveled. Covering her face with towel. Currently, the patient seems to be sedated from the injection of last night. Did not answer questions today, but at the same time she is selectively mute and paranoid. ASSESSMENT: The patient is still psychotic and agitated and can be dangerous to others. TREATMENT PLAN: Continue current medications, which is Lexapro 10 mg in the morning and Cogentin 1 mg at bedtime, but we will increase Zyprexa to 5 mg in the morning and 10 mg at bedtime. Also, continue to work on behavioral modification. Also, try to get more information from the patient regarding her current situation and living stresses. ESTIMATED LENGTH OF STAY: 4-6 days. REASON FOR CONTINUED HOSPITAL STAY: The patient is agitated and needs close monitoring. JOB# [id number]
[2020-03-10] MEDS: INSULIN LISPRO SLIDING SCALE 100 UNITS/ML UNIT SUBQ SCH (07:09)
[2020-03-10] MEDS: Multivitamin Tab PO SCH (08:24)
--- NOTE | 2020-03-10 20:28 | Progress Notes ---
DATE: 03/10/2020 SUBJECTIVE: The patient is still flailing her arms around. No falls. No gait instability. OBJECTIVE: GENERAL: The patient is lying in bed most of the time. VITAL SIGNS: Temperature 98.0, pulse 86, respirations 20, blood pressure is 130/60. HEENT: Normocephalic, atraumatic head exam. NECK: Supple. CARDIOVASCULAR: Regular rate and rhythm. LUNGS: Clear. ABDOMEN: Soft, nontender. EXTREMITIES: No edema, cyanosis or clubbing. ASSESSMENT AND PLAN: 1. Diabetes, hypertension, acute renal failure. 2. Bipolar. 3. Schizophrenia. 4. The patient's labs are being continued to be monitored. The patient's blood sugar is 71. The patient's vitals are optimized. JOB# [id number]
[2020-03-10] MEDS: Benztropine 1 MG TAB PO SCH (20:47)
--- NOTE | 2020-03-11 06:50 | Progress Notes ---
DATE: 03/11/2020 SUBJECTIVE: Chart was reviewed and the patient interviewed. Also discussed the patient's condition with the staff and reviewed records and labs. The patient is extremely agitated and is still in angry and in irritable mood. The patient this morning sitting on gurney chair and is bounding on the chair and also is trying to grab me when I was trying to talk to her. She also is pointing out to imaginary objects and waving her hands in angry and aggressive way. The patient also is still having severe mood swings and at times, the patient seems to be calm and others the patient is extremely agitated and in irritable mood. Otherwise, the patient is compliant with taking her medications, but it seemed that it has not been helping much with her agitation and her aggressive behavior seems to be increased today. The patient is on wheelchair and agitated and vital signs are stable and no new labs available for review. MENTAL STATUS EXAMINATION: Anxious. Irritable mood. Disheveled. Not able to follow any directions. TREATMENT PLAN: We will continue monitoring her behavior and her condition closely. Also, we will increase Zyprexa to 5 mg twice a day and 10 mg at bedtime. Also, we will start the patient on Klonopin 1 mg twice a day. Hopefully, that will help her to be calmer. At the same time, we will continue to work on her irritable mood and agitation. ESTIMATED LENGTH OF STAY: 3-5 days. REASON TO CONTINUE HOSPITAL STAY: The patient is still agitated and also is still in irritable mood. ADDENDUM: We will also decrease Lexapro to 5 mg every day since maybe Lexapro also might cause some of her agitation and manic behavior. JOB# [id number]
[2020-03-11] MEDS: INSULIN LISPRO SLIDING SCALE 100 UNITS/ML UNIT SUBQ SCH (07:03)
[2020-03-11] MEDS: Multivitamin Tab PO SCH (09:45)
[2020-03-11] MEDS: Escitalopram Oxalate 5 mg Tab PO SCH (09:46)
--- NOTE | 2020-03-11 17:46 | Progress Notes ---
DATE: 03/11/2020 SUBJECTIVE: The patient is still flailing her arms. OBJECTIVE: VITAL SIGNS: Temperature 97.6, pulse 103, respirations 20, blood pressure 127/65, satting 98% on room air. HEENT: Normocephalic, atraumatic head exam. NECK: Supple. CARDIOVASCULAR: Regular rate and rhythm. LUNGS: Clear. ABDOMEN: Soft, nontender. EXTREMITIES: No edema, cyanosis or clubbing. ASSESSMENT AND PLAN: 1. Diabetes. 2. Hypertension. 3. Recent renal failure. 4. Bipolar. 5. Schizophrenia. We will have to wait for repeat kidney function labs to see how she is doing. Blood pressure seems to be appropriately monitored and managed. JOB# [id number]
[2020-03-11] MEDS: Benztropine 1 MG TAB PO SCH (21:45)
[2020-03-12] MEDS: INSULIN LISPRO SLIDING SCALE 100 UNITS/ML UNIT SUBQ SCH (06:39)
[2020-03-12] MEDS: Multivitamin Tab PO SCH (09:04)
[2020-03-12] MEDS: Escitalopram Oxalate 5 mg Tab PO SCH (09:04)
--- NOTE | 2020-03-12 14:57 | Progress Notes ---
DATE: 03/12/2020 SUBJECTIVE: The patient is still feeling her arms, although less so. No chest pain, shortness of breath, no nausea, vomiting, abdominal pain. OBJECTIVE: VITAL SIGNS: Temperature is 97.7, pulse 75, respirations 20, blood pressure 130/71. HEENT: Normocephalic, atraumatic head exam. NECK: Supple. CARDIOVASCULAR: Regular rate and rhythm. LUNGS: Clear. ABDOMEN: Soft, nontender. EXTREMITIES: No edema, cyanosis or clubbing. ASSESSMENT AND PLAN: 1. Diabetes. 2. Hypertension. 3. History of renal failure. 4. Bipolar. 5. Schizophrenia. 6. The patient's blood sugar is appropriate and normal. The patient will continue with current medications for BP and diabetes. Discussed care plan with nursing staff. JOB# [id number]
--- NOTE | 2020-03-12 15:30 | Progress Notes ---
DATE: 03/12/2020 SUBJECTIVE: Chart was reviewed and the patient interviewed. Also discussed the patient's condition with the staff and reviewed records and labs. The patient continued to be in irritable mood and she is still easily agitated. The patient also is still grabbing stuff and throwing on the floor. She also swinging her arms and hands, trying to hit somebody, although nobody next to her. She also has unpredictable behavior and she still has mood swings and sometimes calm and sometimes not. The patient also is banging on the ____ table where she is sitting. She also not able to follow staff directions. Vital signs are stable and no new labs available for review. MENTAL STATUS EXAMINATION: Disheveled. Irritable moods. Disorganized thoughts and incoherent and unable to answer any of the questions coherently. ASSESSMENT: The patient is still psychotic and agitated. TREATMENT PLAN: Continue monitoring her behavior and her condition closely. Also, continue Zyprexa and continue adjusting her psychotropic medications. ESTIMATED LENGTH OF STAY: 3-5 days. REASON FOR CONTINUED HOSPITAL STAY: The patient is still agitated and still needs close monitoring and more adjustment to her medications. [facility]# [id number]
[2020-03-12] MEDS: Benztropine 1 MG TAB PO SCH (21:14)
[2020-03-13] MEDS: INSULIN LISPRO SLIDING SCALE 100 UNITS/ML UNIT SUBQ SCH (06:29)
--- NOTE | 2020-03-13 07:25 | Progress Notes ---
DATE: 03/13/2020 SUBJECTIVE: Chart was reviewed and the patient interviewed. Also discussed the patient's condition with the staff and reviewed the records and labs. The patient is still in angry and in irritable mood. The patient also is restless and she is aggressive with the staff and she also still confused and forgetful. The patient also is still trying to hit people when they are trying to help her with her ADLs. Otherwise, the patient is compliant with taking her medications. The patient's gait, she is on gurney chair all the time. Vital signs are stable. No new labs available for review. MENTAL STATUS EXAMINATION: Disheveled. Anxious. Angry. In irritable moods. Thought processes are circumstantial with flight of ideas and incoherent and unable to carry on coherent conversation. ASSESSMENT: The patient is still agitated and is still psychotic. TREATMENT PLAN: We will continue to monitor her behavior and her condition closely. Also, we will discontinue Zyprexa since it seemed that is not helping the patient much and also will discontinue Lexapro because that might also adding to her agitation. We will start Seroquel 50 mg twice a day and 100 mg at bedtime and continue to monitor her behavior closely. ESTIMATED LENGTH OF STAY: 2-4 days. REASON TO CONTINUE HOSPITAL STAY: The patient is still aggressive and agitated and confused and needs close monitoring and adjustment to her medications and also work on her poor impulse control. JOB# [id number]
[2020-03-13] MEDS: Multivitamin Tab PO SCH (09:09)
--- NOTE | 2020-03-13 13:17 | Progress Notes ---
DATE: 03/13/2020 SUBJECTIVE: The patient is more calm today, less flailing of arms. PHYSICAL EXAMINATION: VITAL SIGNS: Temperature is 97.6, pulse 88, respirations 20, blood pressure is 126/84. HEENT: Normocephalic, atraumatic head exam. NECK: Supple. CARDIOVASCULAR: Regular rate and rhythm. LUNGS: Decreased breath sounds. ABDOMEN: Soft, nontender. EXTREMITIES: No edema, cyanosis or clubbing. ASSESSMENT AND PLAN: 1. Arm flailing 2. Diabetes. 3. Hypertension. 4. History of renal failure. 5. Bipolar. 6. Schizophrenia. The patient's blood pressure was adequately controlled. The patient has no falls noted. No instability in her gait according to nursing staff, blood sugars are well controlled. Discussed with care staff. JOB# [id number]
[2020-03-13] MEDS: Benztropine 1 MG TAB PO SCH (22:00)
[2020-03-14] MEDS: INSULIN LISPRO SLIDING SCALE 100 UNITS/ML UNIT SUBQ SCH (06:52)
[2020-03-14] MEDS: Multivitamin Tab PO SCH (08:16)
[2020-03-14] MEDS: Benztropine 1 MG TAB PO SCH (20:50)
--- NOTE | 2020-03-14 22:17 | Progress Notes ---
DATE: 03/14/[address] Abreu. SUBJECTIVE: The patient recent cross titration of Zyprexa to Seroquel. Today on [id number] evaluation, the patient is in observation room, disorganized and derails in conversation, very irritable upon approach, verbally aggressive and disengaged. MENTAL STATUS EXAMINATION: Disheveled, disorganized, derails in conversation with flight of ideas, incoherent. ASSESSMENT AND PLAN: We will continue monitoring the recent cross titration from Zyprexa to Seroquel. Also recommended to keep 2 hours apart from the Klonopin to reduce oversedation. JOB# [id number]
[2020-03-15] MEDS: INSULIN LISPRO SLIDING SCALE 100 UNITS/ML UNIT SUBQ SCH (06:52)
[2020-03-15] MEDS: Multivitamin Tab PO SCH (08:00)
[2020-03-15] MEDS: Benztropine 1 MG TAB PO SCH (20:50)
--- NOTE | 2020-03-16 02:40 | Progress Notes ---
DATE: 03/15/2020 SUBJECTIVE: The patient was seen, chart reviewed. Nursing staff reporting irritability, easily agitated. Jannet chair, trying to hit people. Today on [id number] evaluation, the patient making nonsensical statements regarding the ____, disorganized, disheveled. MENTAL STATUS EXAMINATION: Irritable, circumstantial, flight of idea and difficult to understand, incoherent conversation. ASSESSMENT AND PLAN: Disorganized, schizophrenia. We will continue the recent adjustments in medications as her Zyprexa and Lexapro were recently discontinued and started on Seroquel. No overt sedation. No complications or side effects were noted with the recent cross titration by primary psychiatrist. JOB# [id number]
[2020-03-16] MEDS: INSULIN LISPRO SLIDING SCALE 100 UNITS/ML UNIT SUBQ SCH (06:30)
[2020-03-16] MEDS: Multivitamin Tab PO SCH (08:51)
--- NOTE | 2020-03-16 12:32 | Progress Notes ---
DATE: 03/16/2020 SUBJECTIVE: Chart was reviewed and the patient interviewed. Also discussed the patient's condition with the staff and reviewed records and labs. The patient continued to be in irritable and angry mood. The patient also is still suspicious and paranoid. She also continued to have mood swings and she is easily irritable and easily agitated. The patient also is interacting minimally with others. She is in a confused state. The patient also is still unable to carry on coherent conversation. The patient seems to be calmer every day and it seems that Seroquel so far has been helping her to calm down more than the Zyprexa. The patient is on a gurney chair all the time. No new labs available for review and vital signs are stable. MENTAL STATUS EXAMINATION: Disheveled. On a gurney chair. Seems to be confused and actively responding. ASSESSMENT: The patient is still confused, but seems to be less agitated. TREATMENT PLAN: Continue Seroquel same dose. Also, continue to monitor her behavior and her condition closely. ESTIMATED LENGTH OF STAY: 2-3 days. REASON FOR CONTINUED HOSPITAL STAY: The patient still needs adjustment to her psychotropic medications and to follow up with discharge plans. JOB# [id number]
--- NOTE | 2020-03-16 14:49 | Progress Notes ---
DATE: 03/16/2020 SUBJECTIVE: The patient is still agitated, acting bizarre. OBJECTIVE: VITAL SIGNS: Temperature 97.0, pulse 91, respirations 20, blood pressure is 90/51. HEENT: Normocephalic, atraumatic head exam. NECK: Supple. CARDIOVASCULAR: Regular rate and rhythm. LUNGS: Clear. ABDOMEN: Soft, nontender. EXTREMITIES: No edema, cyanosis or clubbing. LABORATORY DATA: Blood sugars were 76, 87, 73, 100, 98. ASSESSMENT AND PLAN: 1. Arm flailing. 2. Diabetes. 3. Hypertension. 4. History of renal failure. 5. Bipolar. 6. Schizophrenia. We will continue with supportive care. Blood sugars seem to be controlled. No need at this time for initiating any antihypertensive. Discussed care plan with nursing staff. JOB# [id number]
[2020-03-16] MEDS: Benztropine 1 MG TAB PO SCH (20:30)
[2020-03-17] MEDS: INSULIN LISPRO SLIDING SCALE 100 UNITS/ML UNIT SUBQ SCH (06:54)
--- NOTE | 2020-03-17 06:57 | Progress Notes ---
DATE: 03/17/2020 SUBJECTIVE: The patient continues to be actively hallucinating and actively talking to herself. The patient also is suspicious and is paranoid. She is continuously talking to herself nonstop. The patient also is incoherent and it is not clear in her discussion. The patient also is rambling and is pounding nonstop on the gurney chair. She also is still restless and is still in irritable and angry mood. Otherwise, the patient is cooperative and is compliant with taking her medications with no side effects. The patient is on gurney chair. Vital signs are stable and no new labs available for review. MENTAL STATUS EXAMINATION: Talking constantly nonstop to herself and rambling. Irritable and anxious. Disorganized thoughts. Unable to follow any of my directions. ASSESSMENT: The patient is still psychotic and is still irritable and agitated. She also needs constant redirections. TREATMENT PLAN: We will continue monitoring her behavior and her condition closely. Also, we will increase her Seroquel to 75 mg twice a day and 150 mg at bedtime. Also, we will add Depakote in a dose of 250 mg twice a day and continue to follow up. ESTIMATED LENGTH OF STAY: 3-5 days. REASON TO CONTINUE HOSPITAL STAY: The patient is still irritable and is still agitated and has difficulty with her mood. JOB# [id number]
[2020-03-17] MEDS: Multivitamin Tab PO SCH (08:42)
[2020-03-17] MEDS: Benztropine 1 MG TAB PO SCH (20:19)
--- NOTE | 2020-03-18 06:23 | Progress Notes ---
DATE: 03/18/2020 SUBJECTIVE: Chart was reviewed and the patient interviewed. Also, discussed the patient's condition with the staff and reviewed records and labs. The patient is actively hallucinating and she is still agitated and talking to herself. The patient also is restless and she is in irritable mood. The patient also is still having episodes of agitation and pounding on the side rails. On the other hand, the patient seems to be slightly calmer and her aggressive behavior seems to be less. She is not swinging her arms like what she was doing since her admission. Only problem at this time is that she is still constantly talking to herself and is still rambling. The patient is staying in bed this morning. Vital signs are stable and no new labs available for review. ASSESSMENT: The patient is still psychotic and agitated. TREATMENT PLAN: We will continue to monitor her behavior and her condition closely. Also, I will increase Seroquel to 100 mg twice a day and 200 mg at bedtime. Also, continue to work on her impulse control and adjusting psychotropic medications. ESTIMATED LENGTH OF STAY: 1-3 days. REASON TO CONTINUE HOSPITAL STAY: The patient is still agitated and psychotic and needs close monitoring. Also, still need adjustment of her psychotropic medications. JOB# [id number]
[2020-03-18] MEDS: INSULIN LISPRO SLIDING SCALE 100 UNITS/ML UNIT SUBQ SCH (06:40)
[2020-03-18] MEDS: Multivitamin Tab PO SCH (08:39)
--- NOTE | 2020-03-18 10:32 | Internal Medicine Prog Note ---
Internal Medicine Subjective - Subjective Service Date: 03/18/20 Patient seen and examined:: with staff Patient is:: kenia chair, agitated Per staff patient has:: no adverse event, no episodes of fall Internal Medicine Objective - Results Recent Labs: Laboratory Last Values POC Glucose 110 MG/DL (70 - 105) H 03/18/20 05:54 - Physical Exam Vitals and I&O: Vital Signs Temp 97.8 F 03/18/20 05:59 Pulse 90 03/18/20 05:59 Resp 20 03/18/20 05:59 BP 117/60 03/18/20 05:59 Pulse Ox 98 03/18/20 05:59 Intake & Output 03/17/20 03/18/20 03/18/20 18:59 06:59 18:59 Intake Total 900 360 Output Total 1 Balance 900 359 Intake: Oral 900 360 Output: Urine/Stool Mix 1 Other: # Voids 3 1 # Bowel Movements 1 0 Stool Characteristics Soft Formed Brown Active Medications: Current Medications Acetaminophen (Tylenol) 650 mg PO Q4H PRN PRN Reason: Pain (Mild 1-3) Stop: 05/08/20 11:13 Acetaminophen (Tylenol Extra Strength) 1,000 mg PO Q6H PRN PRN Reason: Pain (Moderate 4-6) Stop: 05/08/20 11:13 Al Hydrox/Mg Hydrox/Simethicone (Maalox) 30 ml PO Q4HR PRN PRN Reason: GI DISTRESS Stop: 05/08/20 11:13 Benztropine Mesylate (Cogentin) 1 mg PO HS CLAUDIA Stop: 05/09/20 20:59 Last Admin: 03/17/20 20:19 Dose: 1 mg Clonazepam (Klonopin) 1 mg PO 1100,1900 [facility]; Protocol Stop: 05/13/20 18:59 Last Admin: 03/18/20 10:03 Dose: 1 mg Ibuprofen (Motrin) 400 mg PO Q4H PRN PRN Reason: Pain (Severe 7-10) Stop: 05/08/20 11:13 Insulin Human Lispro (Humalog Insulin Sliding Scale) 0 units SUBQ QDAC [facility]; Protocol Stop: 05/09/20 07:29 Last Admin: 03/18/20 06:40 Dose: Not Given Lorazepam (Ativan) 0.5 mg PO Q4H PRN; Protocol PRN Reason: Agitation Stop: 05/11/20 00:31 Last Admin: 03/14/20 06:39 Dose: 0.5 mg Magnesium Hydroxide (Milk Of Magnesia) 30 ml PO HS PRN PRN Reason: Constipation Multivitamins/Vitamin C (Theragran) 1 tab PO DAILY CLAUDIA Stop: 05/09/20 08:59 Last Admin: 03/18/20 08:39 Dose: 1 tab Quetiapine Fumarate (Seroquel) 100 mg PO BID CLAUDIA Stop: 05/17/20 08:59 Last Admin: 03/18/20 09:40 Dose: 100 mg Quetiapine Fumarate (Seroquel) 200 mg PO HS CLAUDIA Stop: 05/17/20 20:59 Valproate Sodium (Depakene) 250 mg PO BID CLAUDIA; Protocol Stop: 05/16/20 08:59 Last Admin: 03/18/20 08:39 Dose: 250 mg Zolpidem Tartrate (Ambien) 5 mg PO HS PRN PRN Reason: Insomnia Stop: 05/08/20 11:13 Last Admin: 03/17/20 20:19 Dose: 5 mg HEENT: NC/AT Neck: Supple Lungs: CTAB Cardiovascular: RRR, Normal S1, Normal S2 Abdomen: soft, non-tender Extremities: clear Neurological: unable to follow command (arms are still flailing) Internal Medicine Assmt/Plan - Assessment Assessment: 1. Acute psychosis 2. DM/HTN 3. Hx of Renal failure - Plan Plan: continue bp meds repeat bmp Nutritional Asmnt/Malnutr-PDOC - Dietary Evaluation Malnutrition Findings (Please click <Entered> for more info): Nutritional Asmnt/Malnutrition Start: 03/13/20 12: 00 Text: Status: Complete Freq: Protocol: Document 03/13/20 12:00 INDIO (Rec: 03/13/20 12:03 INDIO [id number]) Nutritional Asmnt/Malnutrition Patient General Information Nutritional Screening Moderate Risk Diagnosis Psychosis Pertinent Medical Hx/Surgical Hx Bipolar, Schizophrenia, DM, HTN, Renal Failure Subjective Information Pt is a 69-year-old female admitted on 03/09 d/t grave disability. Pt is eating an estimated 70% of meals since admit date (x3 days) Per Meal/ Nutrition Activity Record. Dietary is currently providing an estimated 1700 kcals and 90 gm Pro, per Pt PO intake this is providing an estimated 1200 kcals and 60gm Pro to meet 96% kcal and 100% Pro needs- adequate. Pt seen in hallway today, pt unable to communicate effectively and answer or acknowledge any questions asked. Anthropometrics HT: 53 WT: 210 LB (95.45 kg) ABW: 140 LB (63.07 kg) BMI: 37.20 (Obese) GI/ Skin Integrity GI: WNL, Soft, Non-tender, Round BM: Not Noted I/O: 1100/Not Noted Skin: WNL, Intact Arnaldo: 14 Diet Order: CCHO, Chopped, ELBERT Estimated Energy Needs: ( Geriatric, ABW) 8779-2149 kcals (20-25 kcals/ kg) 50-65g Pro (0.8-1.0 g/kg) 1880-8321 ml (20-25 ml/kg) Current Diet Order/ Nutrition Support CCHO, Chopped, ELBERT Pertinent Medications Maalox (PRN), INS-SS, MOM (PRN ), Theragran Pertinent Labs POC Glucose (last 24 hours): 87, 73 03/09: BUN/Cr 31/1.15. GFR 60, Alk Phos 43 Nutritional Hx/Data Height 1.6 m Height (Calculated Centimeters) 160.0 Current Weight (lbs) 95.254 kg Weight (Calculated Kilograms) 95.3 Weight (Calculated Grams) 94880.4 [place] Body Weight 115 LB (52.27 kg) % [place] Body Weight 183 Body Mass Index (BMI) 37.2 Weight Status Obese GI Symptoms GI Symptoms None Last BM Not Noted Skin Integrity/Comment: Skin: WNL, Intact Arnaldo: 14 Current %PO Good (75-100%) Estimated Nutritional Goals BEE in Kcals: Adj wt of IBW Calories/Kcals/Kg 20-25 Kcals Calculated 9569-3033 Protein: Adj wt of IBW Protein g/k.8-1.0 Protein Calculated 50-65 Fluid: ml 7359-1027 ml (20-25 ml/kg) Nutritional Problem 1. Problem Problem Obesity Etiology r/t consistent energy overconsumption Signs/Symptoms: aeb BMI >30 (37.20). Intervention/Recommendation Comments 1.Continue CCHO, Chopped, ELBERT diet as tolerated. 2.Continue antihyperglycemic medication for glucose control per MD order. Expected Outcomes/Goals Expected Outcomes/Goals 1.PO intake to continue to meet >75% of estimated nutritional needs. 2.Gradual weight loss (0.5-1.0 LB/ week) trending toward IBW preferred. 3.Monitor PO intake, wt, nutrition related labs, and skin integrity. 4.F/U as low risk in 7-10 days , 03/20-03/23.
[2020-03-18] MEDS: Benztropine 1 MG TAB PO SCH (21:08)
[2020-03-19] MEDS: INSULIN LISPRO SLIDING SCALE 100 UNITS/ML UNIT SUBQ SCH (06:51)
--- NOTE | 2020-03-19 06:53 | Progress Notes ---
DATE: 03/19/2020 SUBJECTIVE: Chart was reviewed and the patient interviewed. Also discussed the patient's condition with the staff and reviewed records and labs. The patient continued to be confused. The patient also is still actively hallucinating and talking to herself. The patient also is still easily agitated and in angry and in irritable mood. On the other hand, the patient seems to be less aggressive and she is not waving her arms in the air like what she was before. She also is slightly easier to calm her down, but still difficult to follow directions. The patient also continued to comply with taking her medications with, no side effects of medications. The patient's vital signs are stable and no new labs for review. MENTAL STATUS EXAMINATION: Confused. Disheveled. Angry and in irritable mood. Thought processes are disorganized and incoherent and rambling. The patient is talking to herself and talking to imaginary objects. ASSESSMENT: The patient is still agitated and is still confused, needs close monitoring. TREATMENT PLAN: We will continue monitoring her behavior and her condition closely. Also, we will continue Depakote, Seroquel and Klonopin same dose. Also, continue to work on behavior modification and her irritability. ESTIMATED LENGTH OF STAY: 1-3 days. REASON TO CONTINUE HOSPITAL STAY: The patient is still aggressive and agitated and she still can be dangerous to others, needs adjustment to her psychotropic medications. JOB# [id number]
[2020-03-19] MEDS: Multivitamin Tab PO SCH (09:40)
--- NOTE | 2020-03-19 11:55 | Internal Medicine Prog Note ---
Internal Medicine Subjective - Subjective Service Date: 03/19/20 Patient seen and examined:: without staff Patient is:: asleep, eyes closed Per staff patient has:: no adverse event, no episodes of fall Internal Medicine Objective - Results Recent Labs: Laboratory Last Values POC Glucose 110 MG/DL (70 - 105) H 03/18/20 05:54 - Physical Exam Vitals and I&O: Vital Signs Temp 98.5 F 03/19/20 06:08 Pulse 102 03/19/20 06:08 Resp 20 03/19/20 06:08 BP 122/66 03/19/20 06:08 Pulse Ox 100 03/19/20 06:08 Intake & Output 03/18/20 03/19/20 03/19/20 18:59 06:59 18:59 Intake Total 1200 120 Output Total 1 Balance 1199 120 Intake: Oral 1200 120 Output: Stool 1 Other: # Voids 1 # Bowel Movements 0 Stool Characteristics Soft Formed Brown Active Medications: Current Medications Acetaminophen (Tylenol) 650 mg PO Q4H PRN PRN Reason: Pain (Mild 1-3) Stop: 05/08/20 11:13 Acetaminophen (Tylenol Extra Strength) 1,000 mg PO Q6H PRN PRN Reason: Pain (Moderate 4-6) Stop: 05/08/20 11:13 Al Hydrox/Mg Hydrox/Simethicone (Maalox) 30 ml PO Q4HR PRN PRN Reason: GI DISTRESS Stop: 05/08/20 11:13 Benztropine Mesylate (Cogentin) 1 mg PO HS [facility] Stop: 05/09/20 20:59 Last Admin: 03/18/20 21:08 Dose: 1 mg Clonazepam (Klonopin) 1 mg PO 1100,1900 [facility]; Protocol Stop: 05/13/20 18:59 Last Admin: 03/18/20 18:10 Dose: 1 mg Ibuprofen (Motrin) 400 mg PO Q4H PRN PRN Reason: Pain (Severe 7-10) Stop: 05/08/20 11:13 Insulin Human Lispro (Humalog Insulin Sliding Scale) 0 units SUBQ QDAC [facility]; Protocol Stop: 05/09/20 07:29 Last Admin: 03/19/20 06:51 Dose: Not Given Lorazepam (Ativan) 0.5 mg PO Q4H PRN; Protocol PRN Reason: Agitation Stop: 05/11/20 00:31 Last Admin: 03/19/20 09:40 Dose: 0.5 mg Magnesium Hydroxide (Milk Of Magnesia) 30 ml PO HS PRN PRN Reason: Constipation Multivitamins/Vitamin C (Theragran) 1 tab PO DAILY CLAUDIA Stop: 05/09/20 08:59 Last Admin: 03/19/20 09:40 Dose: 1 tab Quetiapine Fumarate (Seroquel) 100 mg PO BID CLAUDIA Stop: 05/17/20 08:59 Last Admin: 03/19/20 09:40 Dose: 100 mg Quetiapine Fumarate (Seroquel) 200 mg PO HS CLAUDIA Stop: 05/17/20 20:59 Last Admin: 03/18/20 21:08 Dose: 200 mg Valproate Sodium (Depakene) 250 mg PO BID [facility]; Protocol Stop: 05/16/20 08:59 Last Admin: 03/19/20 09:40 Dose: 250 mg Zolpidem Tartrate (Ambien) 5 mg PO HS PRN PRN Reason: Insomnia Stop: 05/08/20 11:13 Last Admin: 03/18/20 21:09 Dose: 5 mg HEENT: NC/AT Neck: Supple Lungs: CTAB Cardiovascular: RRR, Normal S1, Normal S2 Abdomen: soft, non-tender Extremities: clear Neurological: unable to follow command (arms are still flailing) Internal Medicine Assmt/Plan - Assessment Assessment: 1. Acute psychosis--better 2. DM/HTN 3. Hx of Renal failure - Plan Plan: continue same meds agitation is much improved Nutritional Asmnt/Malnutr-PDOC - Dietary Evaluation Malnutrition Findings (Please click <Entered> for more info): Nutritional Asmnt/Malnutrition Start: 03/13/20 12: 00 Text: Status: Complete Freq: Protocol: Document 03/13/20 12:00 INDIO (Rec: 03/13/20 12:03 INDIO [id number]) Nutritional Asmnt/Malnutrition Patient General Information Nutritional Screening Moderate Risk Diagnosis Psychosis Pertinent Medical Hx/Surgical Hx Bipolar, Schizophrenia, DM, HTN, Renal Failure Subjective Information Pt is a 69-year-old female admitted on 03/09 d/t grave disability. Pt is eating an estimated 70% of meals since admit date (x3 days) Per Meal/ Nutrition Activity Record. Dietary is currently providing an estimated 1700 kcals and 90 gm Pro, per Pt PO intake this is providing an estimated 1200 kcals and 60gm Pro to meet 96% kcal and 100% Pro needs- adequate. Pt seen in hallway today, pt unable to communicate effectively and answer or acknowledge any questions asked. Anthropometrics HT: 53 WT: 210 LB (95.45 kg) ABW: 140 LB (63.07 kg) BMI: 37.20 (Obese) GI/ Skin Integrity GI: WNL, Soft, Non-tender, Round BM: Not Noted I/O: 1100/Not Noted Skin: WNL, Intact Arnaldo: 14 Diet Order: CCHO, Chopped, ELBERT Estimated Energy Needs: ( Geriatric, ABW) 8033-1928 kcals (20-25 kcals/ kg) 50-65g Pro (0.8-1.0 g/kg) 3443-4131 ml (20-25 ml/kg) Current Diet Order/ Nutrition Support CCHO, Chopped, ELBERT Pertinent Medications Maalox (PRN), INS-SS, MOM (PRN ), Theragran Pertinent Labs POC Glucose (last 24 hours): 87, 73 03/09: BUN/Cr 31/1.15. GFR 60, Alk Phos 43 Nutritional Hx/Data Height 1.6 m Height (Calculated Centimeters) 160.0 Current Weight (lbs) 95.254 kg Weight (Calculated Kilograms) 95.3 Weight (Calculated Grams) 26740.4 [place] Body Weight 115 LB (52.27 kg) % [place] Body Weight 183 Body Mass Index (BMI) 37.2 Weight Status Obese GI Symptoms GI Symptoms None Last BM Not Noted Skin Integrity/Comment: Skin: WNL, Intact Arnaldo: 14 Current %PO Good (75-100%) Estimated Nutritional Goals BEE in Kcals: Adj wt of IBW Calories/Kcals/Kg 20-25 Kcals Calculated 7833-9483 Protein: Adj wt of IBW Protein g/k.8-1.0 Protein Calculated 50-65 Fluid: ml 3635-8551 ml (20-25 ml/kg) Nutritional Problem 1. Problem Problem Obesity Etiology r/t consistent energy overconsumption Signs/Symptoms: aeb BMI >30 (37.20). Intervention/Recommendation Comments 1.Continue CCHO, Chopped, ELBERT diet as tolerated. 2.Continue antihyperglycemic medication for glucose control per MD order. Expected Outcomes/Goals Expected Outcomes/Goals 1.PO intake to continue to meet >75% of estimated nutritional needs. 2.Gradual weight loss (0.5-1.0 LB/ week) trending toward IBW preferred. 3.Monitor PO intake, wt, nutrition related labs, and skin integrity. 4.F/U as low risk in 7-10 days , 03/20-03/23.
[2020-03-19] MEDS: Benztropine 1 MG TAB PO SCH (20:15)
[2020-03-20] MEDS: INSULIN LISPRO SLIDING SCALE 100 UNITS/ML UNIT SUBQ SCH (06:31)
[2020-03-20] MEDS: Multivitamin Tab PO SCH (09:07)
--- NOTE | 2020-03-20 09:44 | Discharge Summary ---
DATE OF DISCHARGE: 03/20/2020 AGE: 69. SEX: Female. PHYSICIAN: Dr. Abreu. FINAL DIAGNOSIS: PRIMARY DIAGNOSIS: Schizoaffective disorder, manic episode, severe, with psychotic features. MEDICAL DIAGNOSES: 1. Hypertension. 2. Diabetes mellitus. REASON FOR HOSPITALIZATION: The patient was admitted to the hospital from [facility]. The patient was extremely agitated and irritable and aggressive and she was talking to imaginary people and she was waving her hand in aggressive way as if she was hitting somebody. HOSPITAL COURSE: The patient continues to be in irritable and angry mood. The patient also continued to be easily agitated. The patient also is interacting minimally with others because of her confusion and agitation. The patient continued waving her hand in irritable and angry mood. She also was not able to follow any directions. The patient was started on Seroquel and the dose adjusted to 100 mg twice a day and 200 mg at bedtime. Also, the patient was given Depakote and dose adjusted to 200 mg twice a day. The patient's affect was brighter. The patient was less irritable and less agitated. She also continued to be easier to follow directions. She continued to talk to herself and was confused, but with no major behavioral problems. [facility] accepted the patient. The patient's medical condition was monitored and the patient has no major medical problems. After discharge plans, the patient discharged from the hospital and went to [facility] with plan to follow her there. [facility] accepted the patient to be discharged there today. MENTAL STATUS EXAM ON CHART: Confused. Anxious. Restless. The patient has no behavioral problems, but still responding. No behavioral issues. EXPECTED OUTCOME AFTER DISCHARGE: Fair if the patient continued to take her psychotropic medications. JOB# [id number]
== END 2020-03-20 13:10 | DRG 885 ==
LOC: GERO 10:40
PROVIDERS: ADMIT Psychiatry & Neurology Psychiatry; ATTEND Psychiatry & Neurology Psychiatry
DX: F25.0 Schizoaffective disorder, bipolar type (principal); I10 Essential (primary) hypertension; E11.9 Type 2 diabetes mellitus without complications; Z79.899 Other long term (current) drug therapy; Z79.84 Long term (current) use of oral hypoglycemic drugs
CPT/HCPCS: 82948-90; 83036-90; J1200; J1630; J2060; J7051; Z7610

== ENCOUNTER 2020-06-18 16:49 | Inpatient (IN) | payer MEDICARE, MEDICAID ==
[2020-06-18] MEDS ORDERED: Maalox 30 mL Cup PO PRN (20:42)
[2020-06-18] MEDS ORDERED: Magnesium Hydroxide (MOM) 30 mL UDC PO PRN (21:06)
[2020-06-18] MEDS ORDERED: Acetaminophen 500 MG TAB PO PRN (21:06)
[2020-06-19 01:54] VITALS: BP 128/76
[2020-06-19] MEDS ORDERED: Multivitamin Tab PO SCH (09:00)
== END 2020-06-19 10:30 | disposition short-term general hospital (02) | DRG 885 ==
LOC: GERO 19:15
PROVIDERS: ADMIT Psychiatry & Neurology Psychiatry; ATTEND Psychiatry & Neurology Psychiatry
DX: F25.0 Schizoaffective disorder, bipolar type (principal); E11.9 Type 2 diabetes mellitus without complications; I10 Essential (primary) hypertension; G47.00 Insomnia, unspecified; F31.9 Bipolar disorder, unspecified
CPT/HCPCS: 82948-90; 83036-90

== ENCOUNTER 2020-06-23 13:27 | Inpatient (IN) | payer MEDICARE, MEDICAID ==
[2020-06-23 16:29] VITALS: BP 157/76
[2020-06-23] MEDS: Benztropine 1 MG TAB PO SCH (22:00)
[2020-06-24] MEDS: Multivitamin Tab PO SCH (09:20)
[2020-06-24] MEDS: Escitalopram Oxalate 5 mg Tab PO SCH (09:20)
--- NOTE | 2020-06-24 11:20 | History & Physical ---
ADMIT DATE: 06/23/2020 IDENTIFYING INFORMATION: The patient is a 69-year-old female. JUSTIFICATION FOR ADMISSION: The patient was admitted on a hold for grave disability. HISTORY OF PRESENT ILLNESS: The patient was admitted 3 days ago, then had to be sent to [place], she is positive for COVID-19. Now, she is back. The patient has been gravely disabled. The patient is hard of hearing. She can only tell her name. No insight about the reason for her hospitalization, appears to be internally preoccupied, guarded, forgetful, and confused. The patient according to the hold has been confused, disorganized, throwing, uncooperative, threatening, paranoid, thrown herself on the floor. When I talked to the patient, she was a very poor historian. She believes she was 66 years of age and she said she has been depressed, for a long time. She reports she is for 8 years, so she is a poor historian. She has one boy, maybe 42 or 34 years of age. She reported that she knows the date. She knows where she is. She does not know why she is here. She admitted to feeling depressed for the past 2 days. She reported difficulty with sleep. She is eating well. However, she is a poor historian. She reported that lately she has been seeing things, hearing voices, but cannot tell me the content of the voices. The patient has been seen by a psychiatrist before. The patient was very disorganized, very poor historian. PAST PSYCHIATRIC HISTORY: The patient reports she was seen by a psychiatrist before because of depression. Unable to tell me if she has any prior suicide attempt, unable to give me more details about the situation and details of her previous treatment. SUBSTANCE ABUSE HISTORY: The patient denies; however, she is a poor historian. ALLERGIES: THE PATIENT IS ALLERGIC TO PENICILLIN. The patient was tested negative for COVID-19. After testing positive here, then she sent to [place] and was sent back. MEDICATIONS: The patient has been on Lexapro and olanzapine. I will defer to the medical doctor. SOCIAL HISTORY: The patient was , not sure how long, she said long time, but she was for 8 years. She says have one boy either 42 or 34 years of age. Educational history, high school education. Work history, she was unable to tell me. She could not tell me exactly where she lives. She said she lives in her home, but she cannot tell me with whom. She denies any family psychiatric disorder; however, she is a poor historian. MENTAL STATUS EXAMINATION: The patient is appropriately dressed, not well groomed. She has no eye contact, whatsoever. She was alert. She was feeding herself. She believes she is 66, when in reality she is 69. She knew she was in a hospital, but does not know why she is in the hospital. She ____ tell me the day, could not tell her age. She has been confused, disorganized and apparently she saw herself on the floor. She has been disorganized, unable to make safe plan for self-care, unpredictable, impulsive. Her long-term memory is poor, cannot remember her age, date of . Recent memory is poor, does not realize the situation that led to her coming here. Immediate memory is poor, cannot repeat things after me or concentrate. When asked about suicide, homicide, she would not answer. Her insight about her illness is poor, does not realize what problem she has. Judgment is poor with her throwing herself on the floor, confusion, and psychosis. IMPRESSION: Major depression with psychosis, rule out schizoaffective disorder. MEDICAL DIAGNOSIS: As per medical doctor. Her assets, she is accepting treatment. Negative poor coping skills. INITIAL TREATMENT PLAN: The patient was started back on her medication. We will do group therapy, milieu therapy, and individual therapy. ESTIMATED LENGTH OF STAY: 3-7 days. DISCHARGE CRITERIA: Decreasing depression, psychosis. After discharge, outpatient. JOB# [id number] [facility]
--- NOTE | 2020-06-24 14:03 | History & Physical ---
ADMIT DATE: 06/23/2020 CHIEF COMPLAINT: Psychosis, delusional thoughts. HISTORY OF PRESENT ILLNESS: We have a 69-year-old female who was transferred to [facility] for treatment of COVID pneumonia, returns now after negative COVID test x 2. The patient is confused. No nausea, vomiting, abdominal pain, diarrhea. PAST MEDICAL HISTORY: 1. Pneumonia, COVID. 2. Depression. MEDICATIONS: List reviewed. ALLERGIES: None. SOCIAL HISTORY: Tobacco, IV drugs, ETOH negative. PHYSICAL EXAMINATION: VITAL SIGNS: Temperature 96.8, pulse 91, respirations 20, blood pressure 166/84, satting 99% on room air. HEENT: Normocephalic, atraumatic head exam. NECK: Supple. CARDIOVASCULAR: Regular rate and rhythm. LUNGS: Decreased breath sounds. ABDOMEN: Soft, nontender. NEUROLOGIC: Cranial nerve exam, nonfocal, grossly intact. ASSESSMENT AND PLAN: 1. COVID pneumonia. 2. Psychosis. The patient will continue with vitamins, Tylenol p.r.n. We will continue with albuterol prn. No further indication for antibiotics JOB# [id number] MTDD
[2020-06-24] MEDS: Benztropine 1 MG TAB PO SCH (21:13)
[2020-06-25] MEDS: Multivitamin Tab PO SCH (09:25)
[2020-06-25] MEDS: Escitalopram Oxalate 5 mg Tab PO SCH (09:25)
--- NOTE | 2020-06-25 19:44 | Internal Medicine Prog Note ---
Internal Medicine Subjective - Subjective Service Date: 06/25/20 Patient seen and examined:: without staff Patient is:: awake Patient Complaints of:: congestion Per staff patient has:: no adverse event, no episodes of fall Internal Medicine Objective - Physical Exam Vitals and I&O: Vital Signs Temp 97.7 F 06/25/20 15:37 Pulse 66 06/25/20 15:37 Resp 18 06/25/20 15:37 BP 137/90 06/25/20 06:25 Pulse Ox 98 06/25/20 15:37 Intake & Output 06/25/20 06/25/20 06/26/20 06:59 18:59 06:59 Intake Total 120 800 Balance 120 800 Intake: Oral 120 800 Other: # Voids 3 3 # Bowel Movements 0 Stool Characteristics Soft Soft Active Medications: Current Medications Acetaminophen (Tylenol) 650 mg PO Q4H PRN PRN Reason: Pain (Mild 1-3) Stop: 08/22/20 16:29 Benztropine Mesylate (Cogentin) 1 mg PO HS CLAUDIA Stop: 08/22/20 21:29 Last Admin: 06/24/20 21:13 Dose: 1 mg Clonazepam (Klonopin) 0.5 mg PO QID CLAUDIA; Protocol Stop: 08/22/20 21:29 Last Admin: 06/25/20 16:58 Dose: 0.5 mg Escitalopram Oxalate (Lexapro) 5 mg PO DAILY CLAUDIA; Protocol Stop: 08/23/20 08:59 Last Admin: 06/25/20 09:25 Dose: 5 mg Multivitamins/Vitamin C (Theragran) 1 tab PO DAILY CLAUDIA Stop: 08/23/20 08:59 Last Admin: 06/25/20 09:25 Dose: 1 tab Olanzapine (Zyprexa) 5 mg PO BID CLAUDIA; Protocol Stop: 08/23/20 08:59 Last Admin: 06/25/20 16:58 Dose: 5 mg Olanzapine (Zyprexa) 10 mg PO HS CLAUDIA; Protocol Stop: 08/22/20 21:38 Last Admin: 06/24/20 21:12 Dose: 10 mg Zolpidem Tartrate (Ambien) 5 mg PO HS PRN PRN Reason: Insomnia Stop: 08/22/20 16:29 Last Admin: 06/24/20 21:12 Dose: 5 mg General: weak HEENT: NC/AT Neck: Supple Lungs: CTAB Cardiovascular: RRR, Normal S1, Normal S2 Abdomen: soft Extremities: clear Internal Medicine Assmt/Plan - Assessment Assessment: 1. Covid pneumonia 2. HTN - Plan Plan: COVID negative x2 continue supportive care d/w r.n. reviewed complete medical records
--- NOTE | 2020-06-25 21:05 | Progress Notes ---
DATE: 06/25/2020 FOLLOWUP PROGRESS NOTE Case was discussed with staff of the patient, reviewed records. The patient continues to be a poor historian. Continues to have poor memory. Unable to make safe plan for self-care, unpredictable, impulsive, needing redirection. No side effects with the medication, no sedation, no nausea and no extrapyramidal symptoms. We will continue to work with the patient in group therapy, milieu therapy, adjust the medication as needed. JOB# [id number]
[2020-06-25] MEDS: Benztropine 1 MG TAB PO SCH (21:27)
[2020-06-26] MEDS: Escitalopram Oxalate 5 mg Tab PO SCH ×2 (09:02→09:14)
[2020-06-26] MEDS: Multivitamin Tab PO SCH ×2 (09:02→09:14)
--- NOTE | 2020-06-26 16:09 | Internal Medicine Prog Note ---
Internal Medicine Subjective - Subjective Service Date: 06/26/20 Patient is:: awake Patient Complaints of:: congestion Per staff patient has:: no adverse event, no episodes of fall Internal Medicine Objective - Physical Exam Vitals and I&O: Vital Signs Temp 98.7 F 06/26/20 14:00 Pulse 82 06/26/20 14:00 Resp 19 06/26/20 14:00 BP 144/82 06/26/20 14:00 Pulse Ox 97 06/26/20 14:00 Intake & Output 06/25/20 06/26/20 06/26/20 18:59 06:59 18:59 Intake Total 800 Balance 800 Intake: Oral 800 Other: # Voids 3 # Bowel Movements 0 Stool Characteristics Soft Soft Soft Active Medications: Current Medications Acetaminophen (Tylenol) 650 mg PO Q4H PRN PRN Reason: Pain (Mild 1-3) Stop: 08/22/20 16:29 Benztropine Mesylate (Cogentin) 1 mg PO HS CLAUDIA Stop: 08/22/20 21:29 Last Admin: 06/25/20 21:27 Dose: 1 mg Clonazepam (Klonopin) 0.5 mg PO QID CLAUDIA; Protocol Stop: 08/22/20 21:29 Last Admin: 06/26/20 13:08 Dose: Not Given Escitalopram Oxalate (Lexapro) 10 mg PO DAILY CLAUDIA; Protocol Stop: 08/26/20 08:59 Multivitamins/Vitamin C (Theragran) 1 tab PO DAILY CLAUDIA Stop: 08/23/20 08:59 Last Admin: 06/26/20 09:14 Dose: Not Given Olanzapine (Zyprexa) 5 mg PO BID CLAUDIA; Protocol Stop: 08/23/20 08:59 Last Admin: 06/26/20 09:14 Dose: Not Given Olanzapine (Zyprexa) 10 mg PO HS CLAUDIA; Protocol Stop: 08/22/20 21:38 Last Admin: 06/25/20 21:28 Dose: 10 mg Zolpidem Tartrate (Ambien) 5 mg PO HS PRN PRN Reason: Insomnia Stop: 08/22/20 16:29 Last Admin: 06/24/20 21:12 Dose: 5 mg General: weak HEENT: NC/AT Neck: Supple Lungs: CTAB Cardiovascular: RRR, Normal S1, Normal S2 Abdomen: soft Extremities: clear Neurological: no change Internal Medicine Assmt/Plan - Assessment Assessment: 1. Covid pneumonia 2. HTN - Plan Plan: monitor for fevers, cough, sob continue supportive care d/w r.n. reviewed complete medical records Nutritional Asmnt/Malnutr-PDOC - Dietary Evaluation Malnutrition Findings (Please click <Entered> for more info): Nutritional Asmnt/Malnutrition Start: 06/26/20 13: 13 Text: Status: Complete Freq: Protocol: Document 06/26/20 13:14 INDIO (Rec: 06/26/20 13:17 INDIO [id number]) Nutritional Asmnt/Malnutrition Patient General Information Nutritional Screening Moderate Risk Diagnosis Grave Disability Pertinent Medical Hx/Surgical Hx Pneumonia, Depression, HTN, DMT2 Subjective Information Pt is a 56-year-old female admitted on 11/17 d/t grave disability hold. Pt is eating an estimated 40% of meals Per Meal/Nutrition Activity Record , pt did not eat lunch 06/24, and did not eat lunch and dinner 06/25, other meal reported at 75-100% eaten. Dietary is currently providing an estimated 1800 kcals and 100 gm Pro, per Pt PO intake this is providing an estimated 720 kcals and 40gm Pro to meet 58% kcal and 80% Pro needs. Visited pt in room, could not understand what she was saying, pt drank her milk but hadnt eaten much lunch. Spoke with pt nurse Cameron, he and the DIRECTOR [employer] both encouraged her to eat and tried to actually spoon feed her to get the process started, he was only successful in getting her to eat a bite of applesauce. Adding Glucerna Hunger Smart BID with meal trays until pt begins to eat meals regularly and meets estimated nutritional needs. Anthropometrics HT: 53 WT: 193 LB (87.73 kg) ABW: 135 LB (61.14 kg) BMI: 34.19 (Overweight) GI/ Skin Integrity GI: WNL, Soft, Non-tender, Large BM: Not Noted I/O: 800/Not Noted Skin: WNL, Intact Arnaldo: 17 Diet Order: [facility] Estimated Energy Needs: (Obese , ABW) 2516-3995 kcals (20-25 kcals/ kg) 50-60g Pro (0.8-1.0 g/kg) 6392-3896 ml (20-25 ml/kg) Current Diet Order/ Nutrition Support [facility] Patient / S.O Can't verbalize diet edu Pertinent Medications Theragran Pertinent Labs 06/23: CRP 6.7 06/19: Glucose 111 CRP 2.3 Ferritin 155 Nutritional Hx/Data Height 1.6 m Height (Calculated Centimeters) 160.0 Current Weight (lbs) 87.543 kg Weight (Calculated Kilograms) 87.5 Weight (Calculated Grams) 60592.3 [place] Body Weight 115 LB (52.27 kg) % [place] Body Weight 168 Body Mass Index (BMI) 34.2 Weight Status Obese GI Symptoms Last BM Not Noted Skin Integrity/Comment: Skin: WNL, Intact Arnaldo: 17 Current %PO Poor (25-49%) Estimated Nutritional Goals BEE in Kcals: Adj wt of IBW Calories/Kcals/Kg 20-25 Kcals Calculated 7014-0477 Protein: Adj wt of IBW Protein g/k.8-1.0 Protein Calculated 50-60 Fluid: ml 2192-4578 ml (20-25 ml/kg) Nutritional Problem 2. Problem Problem Altered nutrition related labs Etiology r/t possible inflammatory responses, pathophysiological causes Signs/Symptoms: aeb BMI 34.19 (obese), labs () Glucose 111, Ferritin 155 (06/23) CRP 6.7. 1. Problem Problem Poor PO intake Etiology r/t psychosis/confusion Signs/Symptoms: aeb pt eating an estimated 40% meals per Meal/Nutrition Record and nurse report. Malnutrition Related to Morbid Obesity Malnutrition related to morbid obesity No Intervention/Recommendation Comments 1. Continue [facility] diet as tolerated. 2. Add Glucerna Hunger Smart BID (completed). Expected Outcomes/Goals Expected Outcomes/Goals 1. PO intake to meet 75% of estimated nutritional needs. 2. Monitor PO intake, wt, nutrition related labs, and skin integrity. 3. F/U as moderate risk in 3-5 days, 06/29-07/01.
[2020-06-26] MEDS: Benztropine 1 MG TAB PO SCH (20:37)
--- NOTE | 2020-06-26 22:00 | Progress Notes ---
DATE: 06/26/2020 Case was discussed with staff of the patient, reviewed records. The patient continues to be confused, continues to be unable to make safe plan for self-care. She is demented. Continues to be unable to make a reasonable conversation. She also hard of hearing. She stays in her room and isolate herself. No side effects with the medication, no sedation, no nausea, no extrapyramidal symptoms. We will continue outpatient group therapy, milieu therapy, adjust medication as needed. I will be increasing her Lexapro to 10 mg a day to help with her depression. JOB# [id number]
--- NOTE | 2020-06-27 07:43 | Progress Notes ---
DATE: 06/27/2020 SUBJECTIVE: A 69-year-old female admitted a few days prior. Positive for COVID-19. The patient with history of grave disability, hard of hearing, internally preoccupied, guarded, forgetful, confused, also apparently throwing herself on the floor. On [id number], unfortunately the patient is not really engaging with me, tells me to come back later. Dr. Martins saw the patient yesterday. Still confused, unable to make a plan for self-care, dementia, making some odd statements. Mostly withdrawn, keeps to self, ongoing behavioral disturbances, impulsivities, slept about 8 hours. Staff noting AO x name only, selectively mute, ongoing delusions. PLAN: We will continue inpatient monitoring. Medications were reviewed. JOB# [id number]
[2020-06-27] MEDS: Multivitamin Tab PO SCH ×2 (08:43→11:24)
[2020-06-27] MEDS: Benztropine 1 MG TAB PO SCH (20:56)
--- NOTE | 2020-06-28 06:50 | Progress Notes ---
DATE: 06/28/2020 SUBJECTIVE: A 69-year-old female with history of grave disability, hard of hearing, internally preoccupied. Today, unfortunately, she does not want to really engage with me, still noted to be confused, appears confused on exam, resting comfortably in bed, sleeping, arousable, opens her eyes, then closes them, poorly oriented, AO x name only, selectively mute, seems to have tardive dyskinesia - on Cogentin, but unfortunately, this will not do anything for the tardive dyskinesia. Currently on dosing of Zyprexa for perceptual disturbances. Medications were reviewed. Labs were reviewed. Vitals were reviewed. ASSESSMENT: A 69-year-old female who seems to be generally calmer, but ongoing concerns about psychotic symptoms, perceptual disturbances. Medication adjustments are being made conservatively given concerns for tardive dyskinesia. The patient is coming from [facility] still internally preoccupied, irritable, mostly withdrawn. PLAN: We will continue to monitor. JOB# [id number]
[2020-06-28] MEDS: Multivitamin Tab PO SCH ×2 (08:59→09:35)
[2020-06-28] MEDS ORDERED: Maalox 30 mL Cup PO PRN (11:02)
[2020-06-28] MEDS ORDERED: Magnesium Hydroxide (MOM) 30 mL UDC PO PRN (11:02)
[2020-06-28] MEDS: Benztropine 1 MG TAB PO SCH (20:50)
[2020-06-29] MEDS: Multivitamin Tab PO SCH (08:14)
--- NOTE | 2020-06-29 13:44 | Internal Medicine Prog Note ---
Internal Medicine Subjective - Subjective Service Date: 06/29/20 (no fevers, no cough, no sob) Patient seen and examined:: without staff, chart reviewed Patient is:: awake Patient Complaints of:: congestion Per staff patient has:: no adverse event, no episodes of fall Internal Medicine Objective - Results Recent Labs: Laboratory Last Values POC Glucose 96 MG/DL (70 - 105) 06/26/20 20:08 - Physical Exam Vitals and I&O: Vital Signs Temp 97.2 F 06/29/20 06:43 Pulse 75 06/29/20 06:43 Resp 18 06/29/20 08:00 BP 139/86 06/29/20 06:43 Pulse Ox 98 06/29/20 06:43 Intake & Output 06/28/20 06/29/20 06/29/20 18:59 06:59 18:59 Intake Total 120 Balance 120 Intake: Oral 120 Other: # Voids 3 # Bowel Movements 0 Stool Characteristics Soft Active Medications: Current Medications Acetaminophen (Tylenol) 650 mg PO Q4H PRN PRN Reason: Pain (Mild 1-3) Stop: 08/22/20 16:29 Al Hydrox/Mg Hydrox/Simethicone (Maalox) 30 ml PO Q4HR PRN PRN Reason: GI DISTRESS Stop: 08/27/20 11:01 Benztropine Mesylate (Cogentin) [address] [facility] Stop: 08/22/20 21:29 Last Admin: 06/28/20 20:50 Dose: 1 mg Clonazepam (Klonopin) 0.5 mg PO QID CLAUDIA; Protocol Stop: 08/22/20 21:29 Last Admin: 06/29/20 13:19 Dose: 0.5 mg Escitalopram Oxalate (Lexapro) 10 mg PO DAILY CLAUDIA; Protocol Stop: 08/26/20 08:59 Last Admin: 06/29/20 08:14 Dose: 10 mg Multivitamins/Vitamin C (Theragran) 1 tab PO DAILY CLAUDIA Stop: 08/23/20 08:59 Last Admin: 06/29/20 08:14 Dose: 1 tab Olanzapine (Zyprexa) 5 mg PO BID CLAUDIA; Protocol Stop: 08/23/20 08:59 Last Admin: 06/29/20 08:15 Dose: 5 mg Olanzapine (Zyprexa) [address] [facility]; Protocol Stop: 08/22/20 21:38 Last Admin: 06/28/20 20:49 Dose: 10 mg Zolpidem Tartrate (Ambien) 5 mg PO HS PRN PRN Reason: Insomnia Stop: 08/22/20 16:29 Last Admin: 06/28/20 22:56 Dose: 5 mg General: weak HEENT: NC/AT Neck: Supple Lungs: CTAB Cardiovascular: RRR, Normal S1, Normal S2 Abdomen: soft Extremities: clear Neurological: no change Internal Medicine Assmt/Plan - Assessment Assessment: 1. Covid pneumonia 2. HTN - Plan Plan: continue supportive care d/w r.n. reviewed complete medical records Nutritional Asmnt/Malnutr-PDOC - Dietary Evaluation Malnutrition Findings (Please click <Entered> for more info): Nutritional Asmnt/Malnutrition Start: 06/26/20 13: 13 Text: Status: Complete Freq: Protocol: Document 06/26/20 13:14 INDIO (Rec: 06/26/20 13:17 INDIO [id number]) Nutritional Asmnt/Malnutrition Patient General Information Nutritional Screening Moderate Risk Diagnosis Grave Disability Pertinent Medical Hx/Surgical Hx Pneumonia, Depression, HTN, DMT2 Subjective Information Pt is a 56-year-old female admitted on 11/17 d/t grave disability hold. Pt is eating an estimated 40% of meals Per Meal/Nutrition Activity Record , pt did not eat lunch 06/24, and did not eat lunch and dinner 06/25, other meal reported at 75-100% eaten. Dietary is currently providing an estimated 1800 kcals and 100 gm Pro, per Pt PO intake this is providing an estimated 720 kcals and 40gm Pro to meet 58% kcal and 80% Pro needs. Visited pt in room, could not understand what she was saying, pt drank her milk but hadnt eaten much lunch. Spoke with pt nurse Cameron, he and the HOT OILER both encouraged her to eat and tried to actually spoon feed her to get the process started, he was only successful in getting her to eat a bite of applesauce. Adding Glucerna Hunger Smart BID with meal trays until pt begins to eat meals regularly and meets estimated nutritional needs. Anthropometrics HT: 53 WT: 193 LB (87.73 kg) ABW: 135 LB (61.14 kg) BMI: 34.19 (Overweight) GI/ Skin Integrity GI: WNL, Soft, Non-tender, Large BM: Not Noted I/O: 800/Not Noted Skin: WNL, Intact Arnaldo: 17 Diet Order: [facility] Estimated Energy Needs: (Obese , ABW) 3346-5633 kcals (20-25 kcals/ kg) 50-60g Pro (0.8-1.0 g/kg) 2012-3767 ml (20-25 ml/kg) Current Diet Order/ Nutrition Support [facility] Patient / S.O Can't verbalize diet edu Pertinent Medications Theragran Pertinent Labs 06/23: CRP 6.7 06/19: Glucose 111 CRP 2.3 Ferritin 155 Nutritional Hx/Data Height 1.6 m Height (Calculated Centimeters) 160.0 Current Weight (lbs) 87.543 kg Weight (Calculated Kilograms) 87.5 Weight (Calculated Grams) 40741.3 [place] Body Weight 115 LB (52.27 kg) % [place] Body Weight 168 Body Mass Index (BMI) 34.2 Weight Status Obese GI Symptoms Last BM Not Noted Skin Integrity/Comment: Skin: WNL, Intact Arnaldo: 17 Current %PO Poor (25-49%) Estimated Nutritional Goals BEE in Kcals: Adj wt of IBW Calories/Kcals/Kg 20-25 Kcals Calculated 9455-4218 Protein: Adj wt of IBW Protein g/k.8-1.0 Protein Calculated 50-60 Fluid: ml 6297-2954 ml (20-25 ml/kg) Nutritional Problem 2. Problem Problem Altered nutrition related labs Etiology r/t possible inflammatory responses, pathophysiological causes Signs/Symptoms: aeb BMI 34.19 (obese), labs () Glucose 111, Ferritin 155 (06/23) CRP 6.7. 1. Problem Problem Poor PO intake Etiology r/t psychosis/confusion Signs/Symptoms: aeb pt eating an estimated 40% meals per Meal/Nutrition Record and nurse report. Malnutrition Related to Morbid Obesity Malnutrition related to morbid obesity No Intervention/Recommendation Comments 1. Continue [facility] diet as tolerated. 2. Add Glucerna Hunger Smart BID (completed). Expected Outcomes/Goals Expected Outcomes/Goals 1. PO intake to meet 75% of estimated nutritional needs. 2. Monitor PO intake, wt, nutrition related labs, and skin integrity. 3. F/U as moderate risk in 3-5 days, 8/3-8.
--- NOTE | 2020-06-29 20:28 | Progress Notes ---
DATE: 06/29/2020 Case was discussed with staff of the patient, reviewed records. The patient continues to be internally preoccupied, confused, unable to express herself, also hard of hearing, unable to participate in meaningful conversation or make safe plan for self-care, unpredictable, impulsive, and needing redirection. No side effects with the medication, no sedation, no nausea, no extrapyramidal symptoms. I will continue outpatient group therapy, milieu therapy, and adjust medications as needed. JOB# [id number]
[2020-06-29] MEDS: Benztropine 1 MG TAB PO SCH (21:52)
[2020-06-30] MEDS: Multivitamin Tab PO SCH ×2 (08:23→13:17)
--- NOTE | 2020-06-30 14:27 | Progress Notes ---
DATE: 06/30/2020 Case was discussed with staff of the patient, reviewed records. The patient continues to be confused, continues to be unpredictable, impulsive, stays to herself, unable to participate in a meaningful conversation or make safe plan for self-care. No acting out behavior. I will be adding Aricept to her medication to help with her poor memory. Cognitive difficulty. Also, working on placement for this patient. No side effects with the medication, no sedation, no nausea, no extrapyramidal symptoms. We will continue outpatient group therapy, milieu therapy, and adjust medications as needed. JOB# [id number]
--- NOTE | 2020-06-30 18:03 | Internal Medicine Prog Note ---
Internal Medicine Subjective - Subjective Service Date: 06/30/20 Patient seen and examined:: without staff Patient is:: awake Patient Complaints of:: congestion Per staff patient has:: no adverse event, no episodes of fall Internal Medicine Objective - Results Recent Labs: Laboratory Last Values POC Glucose 96 MG/DL (70 - 105) 06/26/20 20:08 - Physical Exam Vitals and I&O: Vital Signs Temp 97.7 F 06/30/20 14:00 Pulse 89 06/30/20 14:00 Resp 18 06/30/20 14:00 BP 148/76 06/30/20 14:00 Pulse Ox 96 06/30/20 14:00 Intake & Output 06/29/20 06/30/20 06/30/20 18:59 06:59 18:59 Intake Total 1000 Balance 1000 Intake: Oral 1000 Other: # Voids 2 # Bowel Movements 0 Active Medications: Current Medications Acetaminophen (Tylenol) 650 mg PO Q4H PRN PRN Reason: Pain (Mild 1-3) Stop: 08/22/20 16:29 Al Hydrox/Mg Hydrox/Simethicone (Maalox) 30 ml PO Q4HR PRN PRN Reason: GI DISTRESS Stop: 08/27/20 11:01 Benztropine Mesylate (Cogentin) 1 mg PO HS [facility] Stop: 08/22/20 21:29 Last Admin: 06/29/20 21:52 Dose: Not Given Clonazepam (Klonopin) 0.5 mg PO QID [facility]; Protocol Stop: 08/22/20 21:29 Last Admin: 06/30/20 16:54 Dose: Not Given Donepezil HCl (Aricept) 5 mg PO HS [facility] Stop: 08/29/20 20:59 Escitalopram Oxalate (Lexapro) 10 mg PO DAILY [facility]; Protocol Stop: 08/26/20 08:59 Last Admin: 06/30/20 13:17 Dose: Not Given Multivitamins/Vitamin C (Theragran) 1 tab PO DAILY [facility] Stop: 08/23/20 08:59 Last Admin: 06/30/20 13:17 Dose: Not Given Olanzapine (Zyprexa) 5 mg PO BID [facility]; Protocol Stop: 08/23/20 08:59 Last Admin: 06/30/20 16:54 Dose: Not Given Olanzapine (Zyprexa) 10 mg PO HS [facility]; Protocol Stop: 08/22/20 21:38 Last Admin: 06/29/20 21:52 Dose: Not Given Zolpidem Tartrate (Ambien) 5 mg PO HS PRN PRN Reason: Insomnia Stop: 08/22/20 16:29 Last Admin: 06/28/20 22:56 Dose: 5 mg General: weak HEENT: NC/AT Neck: Supple Lungs: CTAB Cardiovascular: RRR, Normal S1, Normal S2 Abdomen: soft Extremities: clear Neurological: no change Internal Medicine Assmt/Plan - Assessment Assessment: 1. Covid pneumonia 2. HTN - Plan Plan: continue supportive care d/w r.n. reviewed complete medical records Nutritional Asmnt/Malnutr-PDOC - Dietary Evaluation Malnutrition Findings (Please click <Entered> for more info): Nutritional Asmnt/Malnutrition Start: 06/26/20 13: 13 Text: Status: Complete Freq: Protocol: Document 06/26/20 13:14 INDIO (Rec: 06/26/20 13:17 INDIO [id number]) Nutritional Asmnt/Malnutrition Patient General Information Nutritional Screening Moderate Risk Diagnosis Grave Disability Pertinent Medical Hx/Surgical Hx Pneumonia, Depression, HTN, DMT2 Subjective Information Pt is a 56-year-old female admitted on 11/17 d/t grave disability hold. Pt is eating an estimated 40% of meals Per Meal/Nutrition Activity Record , pt did not eat lunch 06/24, and did not eat lunch and dinner 06/25, other meal reported at 75-100% eaten. Dietary is currently providing an estimated 1800 kcals and 100 gm Pro, per Pt PO intake this is providing an estimated 720 kcals and 40gm Pro to meet 58% kcal and 80% Pro needs. Visited pt in room, could not understand what she was saying, pt drank her milk but hadnt eaten much lunch. Spoke with pt nurse Cameron, he and the CLINICAL ASSISTANT PROFESSOR both encouraged her to eat and tried to actually spoon feed her to get the process started, he was only successful in getting her to eat a bite of applesauce. Adding Glucerna Hunger Smart BID with meal trays until pt begins to eat meals regularly and meets estimated nutritional needs. Anthropometrics HT: 53 WT: 193 LB (87.73 kg) ABW: 135 LB (61.14 kg) BMI: 34.19 (Overweight) GI/ Skin Integrity GI: WNL, Soft, Non-tender, Large BM: Not Noted I/O: 800/Not Noted Skin: WNL, Intact Arnaldo: 17 Diet Order: [facility] [place] Estimated Energy Needs: (Obese , ABW) 7039-8563 kcals (20-25 kcals/ kg) 50-60g Pro (0.8-1.0 g/kg) 3744-9445 ml (20-25 ml/kg) Current Diet Order/ Nutrition Support [facility] [place] Patient / S.O Can't verbalize diet edu Pertinent Medications Theragran Pertinent Labs 06/23: CRP 6.7 06/19: Glucose 111 CRP 2.3 Ferritin 155 Nutritional Hx/Data Height 1.6 m Height (Calculated Centimeters) 160.0 Current Weight (lbs) 87.543 kg Weight (Calculated Kilograms) 87.5 Weight (Calculated Grams) 92547.3 [place] Body Weight 115 LB (52.27 kg) % [place] Body Weight 168 Body Mass Index (BMI) 34.2 Weight Status Obese GI Symptoms Last BM Not Noted Skin Integrity/Comment: Skin: WNL, Intact Arnaldo: 17 Current %PO Poor (25-49%) Estimated Nutritional Goals BEE in Kcals: Adj wt of IBW Calories/Kcals/Kg 20-25 Kcals Calculated 2297-0429 Protein: Adj wt of IBW Protein g/k.8-1.0 Protein Calculated 50-60 Fluid: ml 0294-4133 ml (20-25 ml/kg) Nutritional Problem 2. Problem Problem Altered nutrition related labs Etiology r/t possible inflammatory responses, pathophysiological causes Signs/Symptoms: aeb BMI 34.19 (obese), labs () Glucose 111, Ferritin 155 (06/23) CRP 6.7. 1. Problem Problem Poor PO intake Etiology r/t psychosis/confusion Signs/Symptoms: aeb pt eating an estimated 40% meals per Meal/Nutrition Record and nurse report. Malnutrition Related to Morbid Obesity Malnutrition related to morbid obesity No Intervention/Recommendation Comments 1. Continue [facility] [place] diet as tolerated. 2. Add Glucerna Hunger Smart BID (completed). Expected Outcomes/Goals Expected Outcomes/Goals 1. PO intake to meet 75% of estimated nutritional needs. 2. Monitor PO intake, wt, nutrition related labs, and skin integrity. 3. F/U as moderate risk in 3-5 days, 06/29-07/01.
[2020-06-30] MEDS: Benztropine 1 MG TAB PO SCH (21:23)
[2020-07-01] MEDS: Multivitamin Tab PO SCH (08:32)
--- NOTE | 2020-07-01 13:31 | Internal Medicine Prog Note ---
Internal Medicine Subjective - Subjective Service Date: 07/01/20 Patient seen and examined:: without staff Patient is:: awake Patient Complaints of:: congestion Per staff patient has:: no adverse event, no episodes of fall Internal Medicine Objective - Results Recent Labs: Laboratory Last Values POC Glucose 96 MG/DL (70 - 105) 06/26/20 20:08 - Physical Exam Vitals and I&O: Vital Signs Temp 97.7 F 06/30/20 20:00 Pulse 75 06/30/20 20:00 Resp 17 07/01/20 08:00 BP 149/70 06/30/20 20:00 Pulse Ox 100 06/30/20 20:00 Intake & Output 06/30/20 07/01/20 07/01/20 18:59 06:59 18:59 Intake Total 600 120 Balance 600 120 Intake: Oral 600 120 Other: # Voids 3 3 # Bowel Movements 0 Stool Characteristics Soft Formed Brown Active Medications: Current Medications Acetaminophen (Tylenol) 650 mg PO Q4H PRN PRN Reason: Pain (Mild 1-3) Stop: 08/22/20 16:29 Al Hydrox/Mg Hydrox/Simethicone (Maalox) 30 ml PO Q4HR PRN PRN Reason: GI DISTRESS Stop: 08/27/20 11:01 Benztropine Mesylate (Cogentin) 1 mg PO HS [facility] Stop: 08/22/20 21:29 Last Admin: 06/30/20 21:23 Dose: Not Given Clonazepam (Klonopin) 0.5 mg PO QID [facility]; Protocol Stop: 08/22/20 21:29 Last Admin: 07/01/20 12:39 Dose: Not Given Donepezil HCl (Aricept) 5 mg PO HS [facility] Stop: 08/29/20 20:59 Last Admin: 06/30/20 21:23 Dose: Not Given Escitalopram Oxalate (Lexapro) 10 mg PO DAILY [facility]; Protocol Stop: 08/26/20 08:59 Last Admin: 07/01/20 08:32 Dose: Not Given Multivitamins/Vitamin C (Theragran) 1 tab PO DAILY [facility] Stop: 08/23/20 08:59 Last Admin: 07/01/20 08:32 Dose: Not Given Olanzapine (Zyprexa) 5 mg PO BID [facility]; Protocol Stop: 08/23/20 08:59 Last Admin: 07/01/20 08:32 Dose: Not Given Olanzapine (Zyprexa) 10 mg PO HS [facility]; Protocol Stop: 08/22/20 21:38 Last Admin: 06/30/20 21:24 Dose: Not Given Zolpidem Tartrate (Ambien) 5 mg PO HS PRN PRN Reason: Insomnia Stop: 08/22/20 16:29 Last Admin: 06/28/20 22:56 Dose: 5 mg General: weak HEENT: NC/AT Neck: Supple Lungs: CTAB Cardiovascular: RRR, Normal S1, Normal S2 Abdomen: soft Extremities: clear Neurological: no change Internal Medicine Assmt/Plan - Assessment Assessment: 1. Covid pneumonia 2. HTN - Plan Plan: continue supportive care d/w r.n. reviewed complete medical records Nutritional Asmnt/Malnutr-PDOC - Dietary Evaluation Malnutrition Findings (Please click <Entered> for more info): Nutritional Asmnt/Malnutrition Start: 06/26/20 13: 13 Text: Status: Complete Freq: Protocol: Document 06/26/20 13:14 INDIO (Rec: 06/26/20 13:17 INDIO [id number]) Nutritional Asmnt/Malnutrition Patient General Information Nutritional Screening Moderate Risk Diagnosis Grave Disability Pertinent Medical Hx/Surgical Hx Pneumonia, Depression, HTN, DMT2 Subjective Information Pt is a 56-year-old female admitted on 11/17 d/t grave disability hold. Pt is eating an estimated 40% of meals Per Meal/Nutrition Activity Record , pt did not eat lunch 06/24, and did not eat lunch and dinner 06/25, other meal reported at 75-100% eaten. Dietary is currently providing an estimated 1800 kcals and 100 gm Pro, per Pt PO intake this is providing an estimated 720 kcals and 40gm Pro to meet 58% kcal and 80% Pro needs. Visited pt in room, could not understand what she was saying, pt drank her milk but hadnt eaten much lunch. Spoke with pt nurse Cameron, he and the COMPRESSOR MECHANIC BUS both encouraged her to eat and tried to actually spoon feed her to get the process started, he was only successful in getting her to eat a bite of applesauce. Adding Glucerna Hunger Smart BID with meal trays until pt begins to eat meals regularly and meets estimated nutritional needs. Anthropometrics HT: 53 WT: 193 LB (87.73 kg) ABW: 135 LB (61.14 kg) BMI: 34.19 (Overweight) GI/ Skin Integrity GI: WNL, Soft, Non-tender, Large BM: Not Noted I/O: 800/Not Noted Skin: WNL, Intact Arnaldo: 17 Diet Order: [facility] Estimated Energy Needs: (Obese , ABW) 7536-8230 kcals (20-25 kcals/ kg) 50-60g Pro (0.8-1.0 g/kg) 4430-4465 ml (20-25 ml/kg) Current Diet Order/ Nutrition Support [facility] Patient / S.O Can't verbalize diet edu Pertinent Medications Theragran Pertinent Labs 06/23: CRP 6.7 06/19: Glucose 111 CRP 2.3 Ferritin 155 Nutritional Hx/Data Height 1.6 m Height (Calculated Centimeters) 160.0 Current Weight (lbs) 87.543 kg Weight (Calculated Kilograms) 87.5 Weight (Calculated Grams) 71480.3 [place] Body Weight 115 LB (52.27 kg) % [place] Body Weight 168 Body Mass Index (BMI) 34.2 Weight Status Obese GI Symptoms Last BM Not Noted Skin Integrity/Comment: Skin: WNL, Intact Arnaldo: 17 Current %PO Poor (25-49%) Estimated Nutritional Goals BEE in Kcals: Adj wt of IBW Calories/Kcals/Kg 20-25 Kcals Calculated 1649-2079 Protein: Adj wt of IBW Protein g/k.8-1.0 Protein Calculated 50-60 Fluid: ml 9143-3531 ml (20-25 ml/kg) Nutritional Problem 2. Problem Problem Altered nutrition related labs Etiology r/t possible inflammatory responses, pathophysiological causes Signs/Symptoms: aeb BMI 34.19 (obese), labs () Glucose 111, Ferritin 155 (06/23) CRP 6.7. 1. Problem Problem Poor PO intake Etiology r/t psychosis/confusion Signs/Symptoms: aeb pt eating an estimated 40% meals per Meal/Nutrition Record and nurse report. Malnutrition Related to Morbid Obesity Malnutrition related to morbid obesity No Intervention/Recommendation Comments 1. Continue [facility] diet as tolerated. 2. Add Glucerna Hunger Smart BID (completed). Expected Outcomes/Goals Expected Outcomes/Goals 1. PO intake to meet 75% of estimated nutritional needs. 2. Monitor PO intake, wt, nutrition related labs, and skin integrity. 3. F/U as moderate risk in 3-5 days, 06/29-07/01.
--- NOTE | 2020-07-01 15:09 | Progress Notes ---
DATE: 07/01/2020 Case was discussed with staff of the patient, reviewed records. The patient continues to isolate herself. Continues to have poor insight, continues to be unable to make safe plan for self-care. Sleeping better, eating better, compliant with the medication with no side effects, no sedation, no nausea, no extrapyramidal symptoms. We will continue outpatient group therapy, milieu therapy, and adjust medications as needed. [facility]# [id number]
[2020-07-01] MEDS: Benztropine 1 MG TAB PO SCH (21:45)
[2020-07-02] MEDS: Multivitamin Tab PO SCH (08:27)
--- NOTE | 2020-07-02 12:36 | Progress Notes ---
DATE: 07/02/2020 Case was discussed with staff of the patient, reviewed records. The patient continues to be confused, unable to participate in a meaningful conversation or make safe plan for her self-care. Continues to be unpredictable, impulsive, needing redirection. No side effects with the medication, no sedation, no nausea, no extrapyramidal symptoms. 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 Also, working on discharge plan and the patient needs to go to a nursing facility who can take care of her ADLs or herself. We will continue outpatient group therapy, milieu therapy, adjust medication as needed. JOB# [id number]
--- NOTE | 2020-07-02 16:03 | Internal Medicine Prog Note ---
Internal Medicine Subjective - Subjective Service Date: 07/02/20 Patient seen and examined:: without staff Patient is:: awake Patient Complaints of:: congestion Per staff patient has:: no adverse event, no episodes of fall Internal Medicine Objective - Results Recent Labs: Laboratory Last Values POC Glucose 96 MG/DL (70 - 105) 06/26/20 20:08 - Physical Exam Vitals and I&O: Vital Signs Temp 97 F 07/02/20 14:00 Pulse 87 07/02/20 14:00 Resp 18 07/02/20 14:00 BP 105/32 07/02/20 14:00 Pulse Ox 97 07/02/20 14:00 Intake & Output 07/01/20 07/02/20 07/02/20 18:59 06:59 18:59 Intake Total 1200 120 Balance 1200 120 Intake: Oral 1200 120 Other: # Voids 3 # Bowel Movements 1 Active Medications: Current Medications Acetaminophen (Tylenol) 650 mg PO Q4H PRN PRN Reason: Pain (Mild 1-3) Stop: 08/22/20 16:29 Al Hydrox/Mg Hydrox/Simethicone (Maalox) 30 ml PO Q4HR PRN PRN Reason: GI DISTRESS Stop: 08/27/20 11:01 Benztropine Mesylate (Cogentin) 1 mg PO HS [facility] Stop: 08/22/20 21:29 Last Admin: 07/01/20 21:45 Dose: 1 mg Clonazepam (Klonopin) 0.5 mg PO QID [facility]; Protocol Stop: 08/22/20 21:29 Last Admin: 07/02/20 12:30 Dose: 0.5 mg Donepezil HCl (Aricept) 5 mg PO HS [facility] Stop: 08/29/20 20:59 Last Admin: 07/01/20 21:45 Dose: 5 mg Escitalopram Oxalate (Lexapro) 10 mg PO DAILY [facility]; Protocol Stop: 08/26/20 08:59 Last Admin: 07/02/20 08:27 Dose: Not Given Memantine (Namenda) 5 mg PO DAILY [facility] Stop: 09/01/20 08:59 Multivitamins/Vitamin C (Theragran) 1 tab PO DAILY [facility] Stop: 08/23/20 08:59 Last Admin: 07/02/20 08:27 Dose: Not Given Olanzapine (Zyprexa) 5 mg PO BID [facility]; Protocol Stop: 08/23/20 08:59 Last Admin: 07/02/20 08:27 Dose: Not Given Olanzapine (Zyprexa) 10 mg PO HS [facility]; Protocol Stop: 08/22/20 21:38 Last Admin: 07/01/20 21:45 Dose: 10 mg Zolpidem Tartrate (Ambien) 5 mg PO HS PRN PRN Reason: Insomnia Stop: 08/22/20 16:29 Last Admin: 06/28/20 22:56 Dose: 5 mg General: weak HEENT: NC/AT Neck: Supple Lungs: CTAB Cardiovascular: RRR, Normal S1, Normal S2 Abdomen: soft Extremities: clear Neurological: no change Internal Medicine Assmt/Plan - Assessment Assessment: 1. Covid pneumonia 2. HTN - Plan Plan: continue supportive care d/w r.n. reviewed complete medical records Nutritional Asmnt/Malnutr-PDOC - Dietary Evaluation Malnutrition Findings (Please click <Entered> for more info): Nutritional Asmnt/Malnutrition Start: 06/26/20 13: 13 Text: Status: Complete Freq: Protocol: Document 06/26/20 13:14 INDIO (Rec: 06/26/20 13:17 INDIO [id number]) Nutritional Asmnt/Malnutrition Patient General Information Nutritional Screening Moderate Risk Diagnosis Grave Disability Pertinent Medical Hx/Surgical Hx Pneumonia, Depression, HTN, DMT2 Subjective Information Pt is a 56-year-old female admitted on 11/17 d/t grave disability hold. Pt is eating an estimated 40% of meals Per Meal/Nutrition Activity Record , pt did not eat lunch 06/24, and did not eat lunch and dinner 06/25, other meal reported at 75-100% eaten. Dietary is currently providing an estimated 1800 kcals and 100 gm Pro, per Pt PO intake this is providing an estimated 720 kcals and 40gm Pro to meet 58% kcal and 80% Pro needs. Visited pt in room, could not understand what she was saying, pt drank her milk but hadnt eaten much lunch. Spoke with pt nurse Cameron, he and the SPOOLER both encouraged her to eat and tried to actually spoon feed her to get the process started, he was only successful in getting her to eat a bite of applesauce. Adding Glucerna Hunger Smart BID with meal trays until pt begins to eat meals regularly and meets estimated nutritional needs. Anthropometrics HT: 53 WT: 193 LB (87.73 kg) ABW: 135 LB (61.14 kg) BMI: 34.19 (Overweight) GI/ Skin Integrity GI: WNL, Soft, Non-tender, Large BM: Not Noted I/O: 800/Not Noted Skin: WNL, Intact Arnaldo: 17 Diet Order: [facility] Estimated Energy Needs: (Obese , ABW) 2416-4214 kcals (20-25 kcals/ kg) 50-60g Pro (0.8-1.0 g/kg) 4833-9430 ml (20-25 ml/kg) Current Diet Order/ [facility] Patient / S.O Can't verbalize diet edu Pertinent Medications Theragran Pertinent Labs 06/23: CRP 6.7 06/19: Glucose 111 CRP 2.3 Ferritin 155 Nutritional Hx/Data Height 1.6 m Height (Calculated Centimeters) 160.0 Current Weight (lbs) 87.543 kg Weight (Calculated Kilograms) 87.5 Weight (Calculated Grams) 54471.3 [place] Body Weight 115 LB (52.27 kg) % [place] Body Weight 168 Body Mass Index (BMI) 34.2 Weight Status Obese GI Symptoms Last BM Not Noted Skin Integrity/Comment: Skin: WNL, Intact Arnaldo: 17 Current %PO Poor (25-49%) Estimated Nutritional Goals BEE in Kcals: Adj wt of IBW Calories/Kcals/Kg 20-25 Kcals Calculated 9424-8023 Protein: Adj wt of IBW Protein g/k.8-1.0 Protein Calculated 50-60 Fluid: ml 3031-9816 ml (20-25 ml/kg) Nutritional Problem 2. Problem Problem Altered nutrition related labs Etiology r/t possible inflammatory responses, pathophysiological causes Signs/Symptoms: aeb BMI 34.19 (obese), labs () Glucose 111, Ferritin 155 (06/23) CRP 6.7. 1. Problem Problem Poor PO intake Etiology r/t psychosis/confusion Signs/Symptoms: aeb pt eating an estimated 40% meals per Meal/Nutrition Record and nurse report. Malnutrition Related to Morbid Obesity Malnutrition related to morbid obesity No Intervention/Recommendation Comments 1. Continue [facility] diet as tolerated. 2. Add Glucerna Hunger Smart BID (completed). Expected Outcomes/Goals Expected Outcomes/Goals 1. PO intake to meet 75% of estimated nutritional needs. 2. Monitor PO intake, wt, nutrition related labs, and skin integrity. 3. F/U as moderate risk in 3-5 days, 06/29-07/01.
[2020-07-02] MEDS: Benztropine 1 MG TAB PO SCH (20:59)
[2020-07-03] MEDS: Multivitamin Tab PO SCH ×2 (08:55→11:21)
--- NOTE | 2020-07-03 15:38 | Internal Medicine Prog Note ---
Internal Medicine Subjective - Subjective Service Date: 07/03/20 Patient seen and examined:: without staff Patient is:: awake Patient Complaints of:: congestion Per staff patient has:: no adverse event, no episodes of fall Internal Medicine Objective - Results Recent Labs: Laboratory Last Values POC Glucose 96 MG/DL (70 - 105) 06/26/20 20:08 - Physical Exam Vitals and I&O: Vital Signs Temp 97.6 F 07/03/20 14:00 Pulse 89 07/03/20 14:00 Resp 20 07/03/20 14:00 BP 133/71 07/03/20 14:00 Pulse Ox 97 07/03/20 14:00 Intake & Output 07/02/20 07/03/20 07/03/20 18:59 06:59 18:59 Intake Total 1200 240 Balance 1200 240 Intake: Oral 1200 240 Other: # Voids 2 Stool Characteristics Soft Active Medications: Current Medications Acetaminophen (Tylenol) 650 mg PO Q4H PRN PRN Reason: Pain (Mild 1-3) Stop: 08/22/20 16:29 Al Hydrox/Mg Hydrox/Simethicone (Maalox) 30 ml PO Q4HR PRN PRN Reason: GI DISTRESS Stop: 08/27/20 11:01 Benztropine Mesylate (Cogentin) 1 mg PO HS [facility] Stop: 08/22/20 21:29 Last Admin: 07/02/20 20:59 Dose: 1 mg Clonazepam (Klonopin) 0.5 mg PO QID [facility]; Protocol Stop: 08/22/20 21:29 Last Admin: 07/03/20 11:21 Dose: Not Given Donepezil HCl (Aricept) 5 mg PO HS [facility] Stop: 08/29/20 20:59 Last Admin: 07/02/20 20:59 Dose: 5 mg Escitalopram Oxalate (Lexapro) 10 mg PO DAILY [facility]; Protocol Stop: 08/26/20 08:59 Last Admin: 07/03/20 11:21 Dose: Not Given Memantine (Namenda) 5 mg PO DAILY [facility] Stop: 09/01/20 08:59 Last Admin: 07/03/20 11:21 Dose: Not Given Multivitamins/Vitamin C (Theragran) 1 tab PO DAILY [facility] Stop: 08/23/20 08:59 Last Admin: 07/03/20 11:21 Dose: Not Given Olanzapine (Zyprexa) 5 mg PO BID [facility]; Protocol Stop: 08/23/20 08:59 Last Admin: 07/03/20 11:21 Dose: Not Given Olanzapine (Zyprexa) 10 mg PO HS [facility]; Protocol Stop: 08/22/20 21:38 Last Admin: 07/02/20 20:59 Dose: 10 mg Zolpidem Tartrate (Ambien) 5 mg PO HS PRN PRN Reason: Insomnia Stop: 08/22/20 16:29 Last Admin: 07/02/20 20:59 Dose: 5 mg General: weak HEENT: NC/AT Neck: Supple Lungs: CTAB Cardiovascular: RRR, Normal S1, Normal S2 Abdomen: soft Extremities: clear Neurological: no change Internal Medicine Assmt/Plan - Assessment Assessment: 1. Covid pneumonia 2. HTN - Plan Plan: continue supportive care d/w r.n. reviewed complete medical records Nutritional Asmnt/Malnutr-PDOC - Dietary Evaluation Malnutrition Findings (Please click <Entered> for more info): Nutritional Asmnt/Malnutrition Start: 06/26/20 13: 13 Text: Status: Complete Freq: Protocol: Document 06/26/20 13:14 INDIO (Rec: 06/26/20 13:17 INDIO [id number] -[id number]) Nutritional Asmnt/Malnutrition Patient General Information Nutritional Screening Moderate Risk Diagnosis Grave Disability Pertinent Medical Hx/Surgical Hx Pneumonia, Depression, HTN, DMT2 Subjective Information Pt is a 56-year-old female admitted on 11/17 d/t grave disability hold. Pt is eating an estimated 40% of meals Per Meal/Nutrition Activity Record , pt did not eat lunch 06/24, and did not eat lunch and dinner 06/25, other meal reported at 75-100% eaten. Dietary is currently providing an estimated 1800 kcals and 100 gm Pro, per Pt PO intake this is providing an estimated 720 kcals and 40gm Pro to meet 58% kcal and 80% Pro needs. Visited pt in room, could not understand what she was saying, pt drank her milk but hadnt eaten much lunch. Spoke with pt nurse Cameron, he and the CLINICAL MASSAGE THERAPIST both encouraged her to eat and tried to actually spoon feed her to get the process started, he was only successful in getting her to eat a bite of applesauce. Adding Glucerna Hunger Smart BID with meal trays until pt begins to eat meals regularly and meets estimated nutritional needs. Anthropometrics HT: 53 WT: 193 LB (87.73 kg) ABW: 135 LB (61.14 kg) BMI: 34.19 (Overweight) GI/ Skin Integrity GI: WNL, Soft, Non-tender, Large BM: Not Noted I/O: 800/Not Noted Skin: WNL, Intact Arnaldo: 17 Diet Order: [facility] Estimated Energy Needs: (Obese , ABW) 7184-6273 kcals (20-25 kcals/ kg) 50-60g Pro (0.8-1.0 g/kg) 6971-1306 ml (20-25 ml/kg) Current Diet Order/ Nutrition Support [facility] Patient / S.O Can't verbalize diet edu Pertinent Medications Theragran Pertinent Labs 06/23: CRP 6.7 06/19: Glucose 111 CRP 2.3 Ferritin 155 Nutritional Hx/Data Height 1.6 m Height (Calculated Centimeters) 160.0 Current Weight (lbs) 87.543 kg Weight (Calculated Kilograms) 87.5 Weight (Calculated Grams) 77447.3 [place] Body Weight 115 LB (52.27 kg) % [place] Body Weight 168 Body Mass Index (BMI) 34.2 Weight Status Obese GI Symptoms Last BM Not Noted Skin Integrity/Comment: Skin: WNL, Intact Arnaldo: 17 Current %PO Poor (25-49%) Estimated Nutritional Goals BEE in Kcals: Adj wt of IBW Calories/Kcals/Kg 20-25 Kcals Calculated 1842-3807 Protein: Adj wt of IBW Protein g/k.8-1.0 Protein Calculated 50-60 Fluid: ml 2637-0478 ml (20-25 ml/kg) Nutritional Problem 2. Problem Problem Altered nutrition related labs Etiology r/t possible inflammatory responses, pathophysiological causes Signs/Symptoms: aeb BMI 34.19 (obese), labs () Glucose 111, Ferritin 155 (06/23) CRP 6.7. 1. Problem Problem Poor PO intake Etiology r/t psychosis/confusion Signs/Symptoms: aeb pt eating an estimated 40% meals per Meal/Nutrition Record and nurse report. Malnutrition Related to Morbid Obesity Malnutrition related to morbid obesity No Intervention/Recommendation Comments 1. Continue [facility] diet as tolerated. 2. Add Glucerna Hunger Smart BID (completed). Expected Outcomes/Goals Expected Outcomes/Goals 1. PO intake to meet 75% of estimated nutritional needs. 2. Monitor PO intake, wt, nutrition related labs, and skin integrity. 3. F/U as moderate risk in 3-5 days, 06/29-07/01.
[2020-07-03] MEDS: Benztropine 1 MG TAB PO SCH (21:16)
--- NOTE | 2020-07-03 21:37 | Progress Notes ---
DATE: 07/03/2020 SUMMARY: Case was discussed with staff of the patient and reviewed records. The nurse who is taking care of the patient reports that the patient is functioning better compared to when she came. She sometimes refused medications. She is demented, confused, unable to make safe plan for self-care or engage in any meaningful conversation. She is also hard of hearing. No side effects from the medication, no sedation, no nausea, no extrapyramidal symptoms. We will continue to work with the patient in group therapy, milieu therapy, and adjust the medications as needed. JOB# [id number] HALLIE
[2020-07-04] MEDS: Multivitamin Tab PO SCH ×2 (09:30→10:30)
--- NOTE | 2020-07-04 15:09 | Internal Medicine Prog Note ---
Internal Medicine Subjective - Subjective Service Date: 07/04/20 Patient seen and examined:: without staff Patient is:: awake Patient Complaints of:: congestion Per staff patient has:: no adverse event, no episodes of fall Internal Medicine Objective - Results Recent Labs: Laboratory Last Values POC Glucose 96 MG/DL (70 - 105) 06/26/20 20:08 - Physical Exam Vitals and I&O: Vital Signs Temp 99.2 F 07/03/20 20:19 Pulse 90 07/03/20 20:19 Resp 16 07/04/20 08:00 BP 135/81 07/03/20 20:19 Pulse Ox 92 07/03/20 20:19 Intake & Output 07/03/20 07/04/20 07/04/20 18:59 06:59 18:59 Intake Total 1200 240 Balance 1200 240 Intake: Oral 1200 240 Other: # Voids 3 2 # Bowel Movements 0 Stool Characteristics Soft Soft Active Medications: Current Medications Acetaminophen (Tylenol) 650 mg PO Q4H PRN PRN Reason: Pain (Mild 1-3) Stop: 08/22/20 16:29 Al Hydrox/Mg Hydrox/Simethicone (Maalox) 30 ml PO Q4HR PRN PRN Reason: GI DISTRESS Stop: 08/27/20 11:01 Benztropine Mesylate (Cogentin) 1 mg PO [facility] Stop: 08/22/20 21:29 Last Admin: 07/03/20 21:16 Dose: 1 mg Clonazepam (Klonopin) 0.5 mg PO QID [facility]; Protocol Stop: 08/22/20 21:29 Last Admin: 07/04/20 10:30 Dose: 0.5 mg Donepezil HCl (Aricept) 5 mg PO [facility] Stop: 08/29/20 20:59 Last Admin: 07/03/20 21:16 Dose: 5 mg Escitalopram Oxalate (Lexapro) 10 mg PO DAILY [facility]; Protocol Stop: 08/26/20 08:59 Last Admin: 07/04/20 10:30 Dose: 10 mg Memantine (Namenda) 5 mg PO DAILY [facility] Stop: 09/01/20 08:59 Last Admin: 07/04/20 10:30 Dose: 5 mg Multivitamins/Vitamin C (Theragran) 1 tab PO DAILY [facility] Stop: 08/23/20 08:59 Last Admin: 07/04/20 10:30 Dose: 1 tab Olanzapine (Zyprexa) 5 mg PO BID [facility]; Protocol Stop: 08/23/20 08:59 Last Admin: 07/04/20 10:30 Dose: 5 mg Olanzapine (Zyprexa) 10 mg PO HS [facility]; Protocol Stop: 08/22/20 21:38 Last Admin: 07/03/20 21:15 Dose: 10 mg Zolpidem Tartrate (Ambien) 5 mg PO HS PRN PRN Reason: Insomnia Stop: 08/22/20 16:29 Last Admin: 07/03/20 21:16 Dose: 5 mg General: weak HEENT: NC/AT Neck: Supple Lungs: CTAB Cardiovascular: RRR, Normal S1, Normal S2 Abdomen: soft Extremities: clear Neurological: no change Internal Medicine Assmt/Plan - Assessment Assessment: 1. s/p Covid pneumonia 2. HTN - Plan Plan: continue supportive care d/w r.n. reviewed complete medical records Nutritional Asmnt/Malnutr-PDOC - Dietary Evaluation Malnutrition Findings (Please click <Entered> for more info): Nutritional Asmnt/Malnutrition Start: 06/26/20 13: 13 Text: Status: Complete Freq: Protocol: Document 06/26/20 13:14 INDIO (Rec: 06/26/20 13:17 [facility] CINTHIA-CTXTS -[id number]) Nutritional Asmnt/Malnutrition Patient General Information Nutritional Screening Moderate Risk Diagnosis Grave Disability Pertinent Medical Hx/Surgical Hx Pneumonia, Depression, HTN, DMT2 Subjective Information Pt is a 56-year-old female admitted on 11/17 d/t grave disability hold. Pt is eating an estimated 40% of meals Per Meal/Nutrition Activity Record , pt did not eat lunch 06/24, and did not eat lunch and dinner 06/25, other meal reported at 75-100% eaten. Dietary is currently providing an estimated 1800 kcals and 100 gm Pro, per Pt PO intake this is providing an estimated 720 kcals and 40gm Pro to meet 58% kcal and 80% Pro needs. Visited pt in room, could not understand what she was saying, pt drank her milk but hadnt eaten much lunch. Spoke with pt nurse Cameron, he and the CONFERENCE SERVICES DIRECTOR both encouraged her to eat and tried to actually spoon feed her to get the process started, he was only successful in getting her to eat a bite of applesauce. Adding Glucerna Hunger Smart BID with meal trays until pt begins to eat meals regularly and meets estimated nutritional needs. Anthropometrics HT: 53 WT: 193 LB (87.73 kg) ABW: 135 LB (61.14 kg) BMI: 34.19 (Overweight) GI/ Skin Integrity GI: WNL, Soft, Non-tender, Large BM: Not Noted I/O: 800/Not Noted Skin: WNL, Intact Arnaldo: 17 Diet Order: [facility] Estimated Energy Needs: (Obese , ABW) 7115-6451 kcals (20-25 kcals/ kg) 50-60g Pro (0.8-1.0 g/kg) 0796-7561 ml (20-25 ml/kg) Current Diet Order/ Nutrition Support [facility] Patient / S.O Can't verbalize diet edu Pertinent Medications Theragran Pertinent Labs 06/23: CRP 6.7 06/19: Glucose 111 CRP 2.3 Ferritin 155 Nutritional Hx/Data Height 1.6 m Height (Calculated Centimeters) 160.0 Current Weight (lbs) 87.543 kg Weight (Calculated Kilograms) 87.5 Weight (Calculated Grams) 24290.3 [place] Body Weight 115 LB (52.27 kg) % [place] Body Weight 168 Body Mass Index (BMI) 34.2 Weight Status Obese GI Symptoms Last BM Not Noted Skin Integrity/Comment: Skin: WNL, Intact Arnaldo: 17 Current %PO Poor (25-49%) Estimated Nutritional Goals BEE in Kcals: Adj wt of IBW Calories/Kcals/Kg 20-25 Kcals Calculated 9376-3971 Protein: Adj wt of IBW Protein g/k.8-1.0 Protein Calculated 50-60 Fluid: ml 7774-3354 ml (20-25 ml/kg) Nutritional Problem 2. Problem Problem Altered nutrition related labs Etiology r/t possible inflammatory responses, pathophysiological causes Signs/Symptoms: aeb BMI 34.19 (obese), labs () Glucose 111, Ferritin 155 (06/23) CRP 6.7. 1. Problem Problem Poor PO intake Etiology r/t psychosis/confusion Signs/Symptoms: aeb pt eating an estimated 40% meals per Meal/Nutrition Record and nurse report. Malnutrition Related to Morbid Obesity Malnutrition related to morbid obesity No Intervention/Recommendation Comments 1. Continue [facility] diet as tolerated. 2. Add Glucerna Hunger Smart BID (completed). Expected Outcomes/Goals Expected Outcomes/Goals 1. PO intake to meet 75% of estimated nutritional needs. 2. Monitor PO intake, wt, nutrition related labs, and skin integrity. 3. F/U as moderate risk in 3-5 days, 06/29-07/01.
[2020-07-04] MEDS ORDERED: Magnesium Hydroxide (MOM) 30 mL UDC PO PRN (17:46)
[2020-07-04] MEDS: Benztropine 1 MG TAB PO SCH (21:12)
--- NOTE | 2020-07-04 21:32 | Progress Notes ---
DATE: 07/04/2020 The patient was seen and evaluated. The patient's chart reviewed. IDENTIFYING DATA: A 69-year-old female brought in here from [facility], hard of hearing and gravely disabled and internally preoccupied. Nursing staff reporting that the patient has intermittently refused medications, at times yelling. Today on [id number] evaluation, the patient continues to refuse medication, at times confused, disorganized, very difficult to engage in coherent conversation. MENTAL STATUS EXAMINATION: Disorganized, derailed. ASSESSMENT AND PLAN: Underlying dementia with behavior disturbances, who continues to need a lot of redirection. Reconciliation reviewed, currently on Cogentin 1 mg p.o. at bedtime, Klonopin 0.5 four times a day with Aricept, Namenda, Lexapro and Zyprexa. No over sedation is noted. No side effects. We will continue monitoring. JOB# [id number]
--- NOTE | 2020-07-05 09:10 | Progress Notes ---
DATE: 07/05/[address] Martins. The patient continues to "go to hell." MENTAL STATUS EXAMINATION: Refusing suspicious ____ go to hell. ASSESSMENT AND PLAN: Schizophrenia, disorganized type. We will continue with the current medication adjustment, she continues to be ____. JOB# [id number]
[2020-07-05] MEDS: Multivitamin Tab PO SCH (12:33)
--- NOTE | 2020-07-05 14:07 | Internal Medicine Prog Note ---
Internal Medicine Subjective - Subjective Service Date: 07/05/20 Patient seen and examined:: without staff (no fevers, no cough, no sob) Patient is:: awake Patient Complaints of:: congestion Per staff patient has:: no adverse event, no episodes of fall Internal Medicine Objective - Results Recent Labs: Laboratory Last Values POC Glucose 96 MG/DL (70 - 105) 06/26/20 20:08 - Physical Exam Vitals and I&O: Vital Signs Temp 97.5 F 07/05/20 06:09 Pulse 62 07/05/20 06:09 Resp 16 07/05/20 08:00 BP 118/81 07/05/20 06:09 Pulse Ox 98 07/05/20 06:09 Intake & Output 07/04/20 07/05/20 07/05/20 18:59 06:59 18:59 Intake Total 860 160 Balance 860 160 Intake: Oral 860 160 Other: # Voids 4 2 # Bowel Movements 1 1 Stool Characteristics Soft Soft Active Medications: Current Medications Acetaminophen (Tylenol) 650 mg PO Q4H PRN PRN Reason: Pain (Mild 1-3) Stop: 08/22/20 16:29 Last Admin: 07/04/20 23:50 Dose: 650 mg Al Hydrox/Mg Hydrox/Simethicone (Maalox) 30 ml PO Q4HR PRN PRN Reason: GI DISTRESS Stop: 08/27/20 11:01 Benztropine Mesylate (Cogentin) 1 mg PO HS [facility] Stop: 08/22/20 21:29 Last Admin: 07/04/20 21:12 Dose: 1 mg Clonazepam (Klonopin) 0.5 mg PO QID [facility]; Protocol Stop: 08/22/20 21:29 Last Admin: 07/05/20 13:49 Dose: 0.5 mg Donepezil HCl (Aricept) 5 mg PO HS [facility] Stop: 08/29/20 20:59 Last Admin: 07/04/20 21:12 Dose: 5 mg Escitalopram Oxalate (Lexapro) 10 mg PO DAILY [facility]; Protocol Stop: 08/26/20 08:59 Last Admin: 07/05/20 12:33 Dose: Not Given Magnesium Hydroxide (Milk Of Magnesia) 30 ml PO HS PRN PRN Reason: Constipation Stop: 09/02/20 17:45 Memantine (Namenda) 5 mg PO DAILY [facility] Stop: 09/01/20 08:59 Last Admin: 07/05/20 12:33 Dose: Not Given Multivitamins/Vitamin C (Theragran) 1 tab PO DAILY [facility] Stop: 08/23/20 08:59 Last Admin: 07/05/20 12:33 Dose: Not Given Olanzapine (Zyprexa) 5 mg PO BID [facility]; Protocol Stop: 08/23/20 08:59 Last Admin: 07/05/20 12:33 Dose: Not Given Olanzapine (Zyprexa) 10 mg PO HS [facility]; Protocol Stop: 08/22/20 21:38 Last Admin: 07/04/20 21:12 Dose: 10 mg Zolpidem Tartrate (Ambien) 5 mg PO HS PRN PRN Reason: Insomnia Stop: 08/22/20 16:29 Last Admin: 07/04/20 21:12 Dose: 5 mg General: weak HEENT: NC/AT Neck: Supple Lungs: CTAB Cardiovascular: RRR, Normal S1, Normal S2 Abdomen: soft Extremities: clear Neurological: no change Internal Medicine Assmt/Plan - Assessment Assessment: 1. s/p Covid pneumonia 2. HTN - Plan Plan: monitor signs and symptoms of COVID continue supportive care d/w r.n. reviewed complete medical records Nutritional Asmnt/Malnutr-PDOC - Dietary Evaluation Malnutrition Findings (Please click <Entered> for more info): Nutritional Asmnt/Malnutrition Start: 06/26/20 13: 13 Text: Status: Complete Freq: Protocol: Document 06/26/20 13:14 INDIO (Rec: 06/26/20 13:17 [facility] CINTHIA-CTXTS -[id number]) Nutritional Asmnt/Malnutrition Patient General Information Nutritional Screening Moderate Risk Diagnosis Grave Disability Pertinent Medical Hx/Surgical Hx Pneumonia, Depression, HTN, DMT2 Subjective Information Pt is a 56-year-old female admitted on 11/17 d/t grave disability hold. Pt is eating an estimated 40% of meals Per Meal/Nutrition Activity Record , pt did not eat lunch 06/24, and did not eat lunch and dinner 06/25, other meal reported at 75-100% eaten. Dietary is currently providing an estimated 1800 kcals and 100 gm Pro, per Pt PO intake this is providing an estimated 720 kcals and 40gm Pro to meet 58% kcal and 80% Pro needs. Visited pt in room, could not understand what she was saying, pt drank her milk but hadnt eaten much lunch. Spoke with pt nurse Cameron, he and the MARSHMALLOW MACHINE OPERATOR both encouraged her to eat and tried to actually spoon feed her to get the process started, he was only successful in getting her to eat a bite of applesauce. Adding Glucerna Hunger Smart BID with meal trays until pt begins to eat meals regularly and meets estimated nutritional needs. Anthropometrics HT: 53 WT: 193 LB (87.73 kg) ABW: 135 LB (61.14 kg) BMI: 34.19 (Overweight) GI/ Skin Integrity GI: WNL, Soft, Non-tender, Large BM: Not Noted I/O: 800/Not Noted Skin: WNL, Intact Arnaldo: 17 Diet Order: [facility] Estimated Energy Needs: (Obese , ABW) 2291-4134 kcals (20-25 kcals/ kg) 50-60g Pro (0.8-1.0 g/kg) 1192-0996 ml (20-25 ml/kg) Current Diet Order/ Nutrition Support [facility] Patient / S.O Can't verbalize diet edu Pertinent Medications Theragran Pertinent Labs 06/23: CRP 6.7 06/19: Glucose 111 CRP 2.3 Ferritin 155 Nutritional Hx/Data Height 1.6 m Height (Calculated Centimeters) 160.0 Current Weight (lbs) 87.543 kg Weight (Calculated Kilograms) 87.5 Weight (Calculated Grams) 11145.3 [place] Body Weight 115 LB (52.27 kg) % [place] Body Weight 168 Body Mass Index (BMI) 34.2 Weight Status Obese GI Symptoms Last BM Not Noted Skin Integrity/Comment: Skin: WNL, Intact Arnaldo: 17 Current %PO Poor (25-49%) Estimated Nutritional Goals BEE in Kcals: Adj wt of IBW Calories/Kcals/Kg 20-25 Kcals Calculated 0475-0780 Protein: Adj wt of IBW Protein g/k.8-1.0 Protein Calculated 50-60 Fluid: ml 2925-5233 ml (20-25 ml/kg) Nutritional Problem 2. Problem Problem Altered nutrition related labs Etiology r/t possible inflammatory responses, pathophysiological causes Signs/Symptoms: aeb BMI 34.19 (obese), labs () Glucose 111, Ferritin 155 (06/23) CRP 6.7. 1. Problem Problem Poor PO intake Etiology r/t psychosis/confusion Signs/Symptoms: aeb pt eating an estimated 40% meals per Meal/Nutrition Record and nurse report. Malnutrition Related to Morbid Obesity Malnutrition related to morbid obesity No Intervention/Recommendation Comments 1. Continue [facility] diet as tolerated. 2. Add Glucerna Hunger Smart BID (completed). Expected Outcomes/Goals Expected Outcomes/Goals 1. PO intake to meet 75% of estimated nutritional needs. 2. Monitor PO intake, wt, nutrition related labs, and skin integrity. 3. F/U as moderate risk in 3-5 days, 06/29-07/01.
[2020-07-05] MEDS: Benztropine 1 MG TAB PO SCH (20:53)
[2020-07-06] MEDS: Multivitamin Tab PO SCH (08:20)
--- NOTE | 2020-07-06 09:05 | Discharge Summary ---
DATE OF DISCHARGE: 07/06/2020 IDENTIFYING INFORMATION: The patient is a 69-year-old female. HISTORY OF PRESENT ILLNESS: The patient is admitted apparently a few days ago, had to go ____ positive for COVID-19, then returned back after she was medically cleared. The patient was put on a hold for grave disability, hard of hearing, family tell her name. No insight about the reason for hospitalization. She was internally preoccupied, guarded, forgetful, confused. The patient according to the hold has been confused, disorganized, throwing objects and uncooperative, threatening, paranoid, throwing herself on the floor. When I talked to the patient, she was a very poor historian. She believes she was 66 years of age and she says she has been depressed for a long time. She reports she was just 8 years ago, so she is a poor historian. She has one boy, she said maybe 42 or 35. She reported that she knows the date. She knows where she is. She does not know why she is here. She admitted to feeling depressed for the past 2 days. She reports difficulty with sleep, eating well. She is a poor historian. Lately, she has been seeing things, hearing voices, but can tell me the content of the voices, has been seen by a psychiatrist before, was very disorganized, very poor historian with a history of depression. Unable tell me if she has any prior suicide attempt. She denies substance abuse; however, she is a poor historian. The patient was diagnosed with depression with psychosis and cognitive disorder, not otherwise specified. COURSE IN THE HOSPITAL: The patient was started on medication for dementia, which is Aricept 5 mg at bedtime, also Lexapro 10 mg daily and Namenda was added 5 mg daily. She is on Zyprexa 5 mg twice a day and 10 mg at bedtime. The patient also was given Klonopin as needed. The patient progressively got better. She was no longer acting out. She was sleeping well, eating well. She was accepted to a nursing facility. So, as she was stable, no longer acting out or throwing herself on the floor or acting anyway dangerous and she will be going to a nursing facility, felt that she could be discharged to a lesser level of care. The patient is demented, cannot take care of her ADLs or function socially because of her dementing process. The patient is no longer suicidal or homicidal. No longer psychotic. The patient will be going to ____ Nursing Facility. The patient will be continued with her medications. Follow up with a psychiatrist, primary care physician and therapist. FINAL DIAGNOSES: Major depression, recurrent with psychosis, dementia. MEDICAL DIAGNOSIS: Deferred to the medical doctor. PLAN: The patient will follow up with psychiatrist, primary care physician and therapist. The patient is unable to take care of her ADLs or function socially because of dementia. EXPECTED OUTCOME: Stable if the patient continues with treatment. JOB# [id number]
== END 2020-07-06 14:20 | DRG 885 ==
LOC: GERO 14:30
PROVIDERS: ADMIT Psychiatry & Neurology Psychiatry; ATTEND Psychiatry & Neurology Psychiatry
DX: F33.3 Major depressive disorder, recurrent, severe with psychotic symptoms (principal); U07.1 COVID-19; F03.91 Unspecified dementia, unspecified severity, with behavioral disturbance; I10 Essential (primary) hypertension; Z88.0 Allergy status to penicillin
CPT/HCPCS: 82948-90; 83036-90; 97530; G0410; J7051; U0003-CS; X3904; Z7610